=== PATIENT | female | born 1955 | race Caucasian/White ===

== ENCOUNTER → 2022-02-17 11:48 | Outpatient (BNVA) | payer MEDICARE, SELFPAY | PROVIDERS: PCP Internal Medicine; Visit Provider Psychiatry & Neurology Psychiatry | DX: F32.4 Major depressive disorder, single episode, in partial remission (principal); F41.9 Anxiety disorder, unspecified; M79.7 Fibromyalgia; G25.9 Extrapyramidal and movement disorder, unspecified; R32 Unspecified urinary incontinence | CPT/HCPCS: 90833; 99212 ==

== ENCOUNTER → 2022-06-10 16:22 | Outpatient (BNVA) | payer MEDICARE, SELFPAY | PROVIDERS: PCP Internal Medicine; Visit Provider Psychiatry & Neurology Psychiatry | DX: Z13.89 Encounter for screening for other disorder (principal) | CPT/HCPCS: 90833; 99212 ==

== ENCOUNTER → 2022-09-10 14:00 | Outpatient (BNVA) | payer MEDICARE, SELFPAY | PROVIDERS: PCP Internal Medicine; Visit Provider Psychiatry & Neurology Psychiatry | DX: F32.4 Major depressive disorder, single episode, in partial remission (principal); G25.9 Extrapyramidal and movement disorder, unspecified; M79.7 Fibromyalgia | CPT/HCPCS: 90833; 99212 ==

== ENCOUNTER 2022-12-29 14:59 | Outpatient (AMB) | payer MEDICARE, SELFPAY ==
--- NOTE | 2022-12-29 15:05 | A.OFFPSYCH_ITS ---
Intake Intake Visit Reasons: depression Medication List - Last Reconciled 12/29/22 by Umair Vaughan MD albuterol sulfate 90 mcg/actuation 0 mcg inhalation budesonide-formoterol 80-4.5 mcg/actuation (Symbicort) 2 puffs inhalation clonazepam 0.5 mg PO DAILY PRN darifenacin ER 15 mg PO DAILY famotidine (Pepcid) 40 mg PO DAILY hyoscyamine sulfate 0 mg sublingual BID mirabegron ER (Myrbetriq) 25 mg PO DAILY omeprazole 40 mg PO DAILY HPI- Psychiatric Chief Complaint: depression HPI Narrative: Pt has generally been doing well lot of political concerns does have more sylvester nating anxiety at times has 5 grandchildren Does tend to worry about her who appears somewhat a motivational difficulty with the aging.. The patient has retired This generally is going well some uneasiness at times. Patient does have some periods of anxiety rumination no severe OCD symptoms like she has had previously. Movement disorder seems to be generally more in check Some preoccupation at times with past losses and choices that she need to make your relation to her mother and brother Past Psychiatric History: Past history of severe depression and psychiatric hospitalization not for many years Mental Status Exam Mental Status Exam Narrative: No obvious movements on exam noted somewhat sad looking Patient Appearance: Well Grooomed Patient Orientation: Person, Place, Time and Situation Level of Consciousness: Awake Patient Behavior: Appropriate Mood Description: Apprehensive Affect Description: Anxious Patient Cognition Impaired: No Speech Pattern: Clear and Appropriate Memory Description: Intact Hallucinations: None Delusions: Not Present Thought Process: Intact Thought Content: positive for Intact, positive for Preoccupation, negative for Suicidal Ideation or negative for Homicidal Ideation Depressive Symptoms: Increased Anxiety Judgement: Good Judgement and Insight: Some rumination regarding the past and decisions that she needs to make regarding her mother and brother Assessment and Plan Assessment & Plan (1) Major depressive disorder in partial remission: Status: Acute Code(s): F32.4 - Major depressive disorder, single episode, in partial remission (2) Movement disorder: Status: Acute Code(s): G25.9 - Extrapyramidal and movement disorder, unspecified (3) Fibromyalgia: Status: Acute Code(s): M79.7 - Fibromyalgia Plan Occasional use of clonazepam continue current treatment avoid antidepressant use if no significant reason discussed meditation yoga exercise as anxiety relievers. Patient has a history of a movement disorder worsened by fluoxetine Medications: New clonazepam 0.5 mg PO DAILY PRN 90 tabs 0RF anxiety Counseling and coordination of Care Details-Self Mgmt counseling: Issues related to aging some periods of melancholy related to usp and current marital relationship Details: I spent [39] minutes reviewing the record, seeing the patient and documenting in the medical record. Counseling provided to the patient/caregiver as outlined below. Addressed patient/caregiver concerns regarding current medication regime including effective adherence. Addressed patient/caregiver concerns regarding diagnosis and prognosis including accuracy of diagnosis, prognosis over time, impact of diagnosis. Addressed patient/caregiver concerns regarding impact of recent stressors. 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
== END 2022-12-29 15:18 | disposition home or self-care (01) ==
LOC: HO.HOP 14:59
PROVIDERS: PCP Internal Medicine; Visit Provider Psychiatry & Neurology Psychiatry
DX: F32.4 Major depressive disorder, single episode, in partial remission (principal); G25.9 Extrapyramidal and movement disorder, unspecified; M79.7 Fibromyalgia
CPT/HCPCS: 90833; 99213

== ENCOUNTER → 2022-12-29 14:59 | Outpatient (BNVA) | payer MEDICARE, SELFPAY | PROVIDERS: PCP Internal Medicine; Visit Provider Psychiatry & Neurology Psychiatry | DX: F32.4 Major depressive disorder, single episode, in partial remission (principal); G25.9 Extrapyramidal and movement disorder, unspecified; M79.7 Fibromyalgia | CPT/HCPCS: 90833; 99212 ==

== ENCOUNTER 2023-06-18 11:27 | Outpatient (AMB) | payer MEDICARE, SELFPAY ==
--- NOTE | 2023-06-18 11:42 | MHC.OFFVISPS ---
Intake Intake Visit Reasons: depression HPI- Psychiatric Chief Complaint: depression HPI Narrative: Pt had transient dep episode at times has guilty ruminations regarding her brother and mother had other times has worries regarding future and her who is not very active and engage in maintaining his physical health. The patient has not wanted to go back on antidepressants due to movement disorder she developed years ago question related to fluoxetine. She has generally been stable with some periods of anxiety there is a history significant OCD which she does manage rare use of clonazepam. Also has had some rumination regarding issues related to her and her sister Past Psychiatric History: Past history of severe depression and psychiatric hospitalization not for many years Mental Status Exam Mental Status Exam Narrative: No obvious movements on exam noted somewhat sad/apprehensive looking Patient Appearance: Well Grooomed Patient Orientation: Person, Place, Time and Situation Level of Consciousness: Awake Patient Behavior: Appropriate Mood Description: Depressed (mild) and Apprehensive Affect Description: Anxious, Flat and Apprehensive Patient Cognition Impaired: No Speech Pattern: Clear and Appropriate Memory Description: Intact Hallucinations: None Delusions: Not Present Thought Process: Intact Thought Content: positive for Intact, positive for Preoccupation, negative for Suicidal Ideation or negative for Homicidal Ideation Depressive Symptoms: Increased Anxiety Judgement: Good Judgement and Insight: Some rumination regarding aging and her in regarding her sister and whether the patient herself is somehow a good person Assessment and Plan Assessment & Plan (1) Movement disorder: Status: Acute Code(s): G25.9 - Extrapyramidal and movement disorder, unspecified (2) Major depressive disorder in partial remission: Status: Acute Code(s): F32.4 - Major depressive disorder, single episode, in partial remission (3) Fibromyalgia: Status: Acute Code(s): M79.7 - Fibromyalgia (4) History of OCD (obsessive compulsive disorder): Status: Acute Code(s): Z86.59 - Personal history of other mental and behavioral disorders Plan Patient exhibits no active movement disorder. We discussed different techniques to manage anxiety stress worries regarding the future. OCD symptoms generally control. We have discussed use of supplements in the past. Discussed use of meditation yoga and ways to access. Patient does not seem to need to be on antidepressant and is time rare use of Klonopin follow-up 3 4 months Counseling and coordination of Care Pt. Self Management counseling: Breathing, Exercise, Muscle relaxation and Cognitive restructuring Details-Self Mgmt counseling: Issues related to aging interpersonal issues in the family Diagnosis and Prognosis Counseling: Impact of diagnosis on life functions and Adequacy of current interventions Details: I spent [38] minutes reviewing the record, seeing the patient and documenting in the medical record. Counseling provided to the patient/caregiver as outlined below. Addressed patient/caregiver concerns regarding current medication regime including effective adherence. Addressed patient/caregiver concerns regarding diagnosis and prognosis including accuracy of diagnosis, prognosis over time, impact of diagnosis. Addressed patient/caregiver concerns regarding impact of recent stressors. 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
== END 2023-06-18 11:35 | disposition home or self-care (01) ==
LOC: HO.HOP 11:27
PROVIDERS: PCP Internal Medicine; Visit Provider Psychiatry & Neurology Psychiatry
DX: G25.9 Extrapyramidal and movement disorder, unspecified (principal); F32.4 Major depressive disorder, single episode, in partial remission; M79.7 Fibromyalgia; Z86.59 Personal history of other mental and behavioral disorders
CPT/HCPCS: 90833; 99213

== ENCOUNTER → 2023-06-18 11:27 | Outpatient (BNVA) | payer MEDICARE, SELFPAY | PROVIDERS: PCP Internal Medicine; Visit Provider Psychiatry & Neurology Psychiatry | DX: M79.7 Fibromyalgia (principal); G25.9 Extrapyramidal and movement disorder, unspecified; F32.4 Major depressive disorder, single episode, in partial remission; Z86.59 Personal history of other mental and behavioral disorders | CPT/HCPCS: 99212 ==

== ENCOUNTER 2023-09-14 11:34 | Outpatient (AMB) | payer MEDICARE, SELFPAY ==
--- NOTE | 2023-09-14 13:25 | A.OFFPSYCH_ITS ---
Intake Intake Visit Reasons: depression HPI- Psychiatric Chief Complaint: depression HPI Narrative: Patient seen psychiatric follow-up patient's mood has been somewhat anxious she is somewhat over booked spending a lot of time volunteering having little personal time. She has made her peace with the fact that her does not exercise regularly. She difficult time on her late community where she had been by president [employer] in a quite inappropriate manner and was somewhat difficult for her. She does not feel ongoing that she has needed to return to therapy. She does tend to ruminate be somewhat anxious she does state when she had been on antidepressants in the past she did tend to do this less but had a movement disorder question from Prozac question idiopathic unclear. Did see Neurology on 1 occasion has some degree of chronic anxiety history of depression Past Psychiatric History: Past history of severe depression and psychiatric hospitalization not for many years Mental Status Exam Mental Status Exam Narrative: No obvious movements on exam noted somewhat apprehensive looking Patient Appearance: Well Grooomed Patient Orientation: Person, Place, Time and Situation Level of Consciousness: Awake Patient Behavior: Appropriate Mood Description: Flat and Apprehensive Affect Description: Anxious and Flat Patient Cognition Impaired: No Speech Pattern: Clear and Appropriate Memory Description: Intact Hallucinations: None Delusions: Not Present Thought Process: Intact Thought Content: positive for Intact, positive for Preoccupation, negative for Suicidal Ideation or negative for Homicidal Ideation Depressive Symptoms: Increased Anxiety Judgement: Good Judgement and Insight: Some rumination regarding aging issues regarding self-care regarding her relationships with others Assessment and Plan Assessment & Plan (1) History of OCD (obsessive compulsive disorder): Status: Acute Code(s): Z86.59 - Personal history of other mental and behavioral disorders (2) Movement disorder: Status: Acute Code(s): G25.9 - Extrapyramidal and movement disorder, unspecified (3) Fibromyalgia: Status: Acute Code(s): M79.7 - Fibromyalgia Plan Discussed use of low-dose doxepin for insomnia and anxiety if any abnormal movements patient to immediately stop risks benefits alternatives reviewed discussed option of seeing a therapist patient consent for now regarding current treatment follow-up 3 months occasional use of clonazepam Medications: New doxepin 6 mg PO BEDTIME PRN 30 tabs 2RF sleep Refilled clonazepam 0.5 mg PO DAILY PRN 90 tabs 0RF anxiety Counseling and coordination of Care Pt. Self Management counseling: Breathing Details-Self Mgmt counseling: General issues regarding anxiety aging issues with other people self-care Medication management counseling: Effectiveness and Side effects Diagnosis and Prognosis Counseling: Adequacy of current interventions Details: I spent [36] minutes reviewing the record, seeing the patient and documenting in the medical record. Counseling provided to the patient/caregiver as outlined below. Addressed patient/caregiver concerns regarding current medication regime including effective adherence. Addressed patient/caregiver concerns regarding diagnosis and prognosis including accuracy of diagnosis, prognosis over time, impact of diagnosis. Addressed patient/caregiver concerns regarding impact of recent stressors. 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
== END 2023-09-14 12:03 | disposition home or self-care (01) ==
LOC: HO.HOP 11:34
PROVIDERS: PCP Internal Medicine; Visit Provider Psychiatry & Neurology Psychiatry
DX: Z86.59 Personal history of other mental and behavioral disorders (principal); G25.9 Extrapyramidal and movement disorder, unspecified; M79.7 Fibromyalgia
CPT/HCPCS: 90833; 99213

== ENCOUNTER → 2023-09-14 11:34 | Outpatient (BNVA) | payer MEDICARE, SELFPAY | PROVIDERS: PCP Internal Medicine; Visit Provider Psychiatry & Neurology Psychiatry | DX: G25.9 Extrapyramidal and movement disorder, unspecified (principal); M79.7 Fibromyalgia; Z86.59 Personal history of other mental and behavioral disorders | CPT/HCPCS: 99212 ==

== ENCOUNTER 2024-01-28 10:23 | Outpatient (AMB) | payer MEDICARE, SELFPAY ==
--- NOTE | 2024-01-28 10:37 | MHC.OFFVISPS ---
Intake Intake Visit Reasons: Depression Intake Note: Patient seen psychiatric follow-up. Does tend some periods of anxiety OCD remains in control. Some chronic difficulty with how her has been handling the aging process and managing different duties at the house at times. Involuntary movements are rare. Patient times tends to ruminate about the past. No self-harming thoughts. Does not feel need to be in regular psychotherapy at this time was in the past in treatment with Dr. Castellano. HPI- Psychiatric Chief Complaint: Depression HPI Narrative: Pt seen in psych follow up now into the 3 rd yr of group home generally doing well generally doing ok intermittantly arguing in psychology has rebalanced things with her who tends to give pt more responsibility h had major career shift 20 yrs ago and never quite regrouped has good support system has not been on antidep at this time dmitry ness occasionally has had intrusive ocd sx in the past Past Psychiatric History: Past history of severe depression and psychiatric hospitalization not for many years Mental Status Exam Mental Status Exam Narrative: No obvious movements on exam noted somewhat apprehensive looking at time Patient Appearance: Well Grooomed Patient Orientation: Person, Place, Time and Situation Level of Consciousness: Awake Patient Behavior: Appropriate Mood Description: Flat and Apprehensive Affect Description: Anxious and Flat Patient Cognition Impaired: No Speech Pattern: Clear and Appropriate Memory Description: Intact Hallucinations: None Delusions: Not Present Thought Process: Intact Thought Content: positive for Intact, positive for Preoccupation, negative for Suicidal Ideation or negative for Homicidal Ideation Depressive Symptoms: Increased Anxiety Judgement: Good Judgement and Insight: Some ruminations regarding the past and issues with her good judgment and insight Assessment and Plan Assessment & Plan (1) History of OCD (obsessive compulsive disorder): Status: Acute Code(s): Z86.59 - Personal history of other mental and behavioral disorders (2) Generalized anxiety disorder: Status: Acute Code(s): F41.1 - Generalized anxiety disorder (3) Fibromyalgia: Status: Acute Code(s): M79.7 - Fibromyalgia (4) Movement disorder: Status: Acute Code(s): G25.9 - Extrapyramidal and movement disorder, unspecified Plan Patient generally stable occasional use of clonazepam has not needed antidepressant treatment past issue of movement disorder question worsened by fluoxetine has some anxiety in occasional depressive periods has taken inositol in the past for anxiety occasional OCD symptom No abnormal movements noted during exam Medications: Refilled clonazepam 0.5 mg PO DAILY PRN 30 tabs 1RF anxiety Counseling and coordination of Care Details-Self Mgmt counseling: Issues related to managing anxiety Details-Med Mgmt counseling: Issues related to history of negative reaction to medication and possible plans if needed Details: I spent [39] minutes reviewing the record, seeing the patient and documenting in the medical record. Counseling provided to the patient/caregiver as outlined below. Addressed patient/caregiver concerns regarding current medication regime including effective adherence. Addressed patient/caregiver concerns regarding diagnosis and prognosis including accuracy of diagnosis, prognosis over time, impact of diagnosis. Addressed patient/caregiver concerns regarding impact of recent stressors. 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
== END 2024-01-28 11:52 | disposition home or self-care (01) ==
LOC: HO.HOP 10:23
PROVIDERS: PCP Internal Medicine; Visit Provider Psychiatry & Neurology Psychiatry
DX: Z86.59 Personal history of other mental and behavioral disorders (principal); F41.1 Generalized anxiety disorder; M79.7 Fibromyalgia; G25.9 Extrapyramidal and movement disorder, unspecified
CPT/HCPCS: 90833; 99213

== ENCOUNTER → 2024-01-28 10:23 | Outpatient (BNVA) | payer MEDICARE, SELFPAY | PROVIDERS: PCP Internal Medicine; Visit Provider Psychiatry & Neurology Psychiatry | DX: F32.A Depression, unspecified (principal); F41.1 Generalized anxiety disorder; M79.7 Fibromyalgia; G25.9 Extrapyramidal and movement disorder, unspecified; Z71.89 Other specified counseling; Z86.59 Personal history of other mental and behavioral disorders | CPT/HCPCS: 99212 ==

== ENCOUNTER 2024-06-27 14:24 | Outpatient (AMB) | payer MEDICARE, SELFPAY ==
--- NOTE | 2024-06-27 14:41 | A.OFFPSYCH_ITS ---
Intake Intake Visit Reasons: Depression HPI- Psychiatric Chief Complaint: Depression HPI Narrative: Pt seen in psych f/u has noticed change in function recently some difficulty with completing tasks she normally did somewhat depresswed occ panic has left car running has been helping daughters robotics team has had some recent panic attacks lot of recent stressors of friensds has recommended muse headband . 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 Mood apprehensive affect appropriate somewhat constricted content focused on concerns regarding herself for no abnormal movements noted was alert cooperative future oriented good insight and judgment no SI HI no hallucinations or delusional material Assessment and Plan Assessment & Plan (1) Major depressive disorder in partial remission: Status: Acute Code(s): F32.4 - Major depressive disorder, single episode, in partial remission (2) Generalized anxiety disorder: Status: Acute Code(s): F41.1 - Generalized anxiety disorder Plan Patient did not start doxepin avoiding medication generally occasional clonazepam use. Patient has not felt need for ongoing antidepressant treatment has had SSRI question induced movement disorder in the past worried about some degree of short-term memory concentration attention we discussed ways to maintain brain health Medications: Discontinued doxepin Discontinued Reason: Patient no longer taking 6 mg PO BEDTIME PRN 30 tabs 2RF sleep Orders: Orders Homocysteine 06/27/24 R41.3 - Other amnesia Vitamin B12 and Folate 06/27/24 R41.3 - Other amnesia Counseling and coordination of Care Medication management counseling: Effectiveness and Side effects Diagnosis and Prognosis Counseling: Accuracy of diagnosis and Adequacy of current interventions Details-Diagnosis/Prognosis counseling: Check B12 folate homocystine educated regarding risk factors for cognitive impairment and dementia Details: I spent [60] minutes reviewing the record, seeing the patient and documenting in the medical record. Counseling provided to the patient/caregiver as outlined below. Addressed patient/caregiver concerns regarding current medication regime including effective adherence. Addressed patient/caregiver concerns regarding diagnosis and prognosis including accuracy of diagnosis, prognosis over time, impact of diagnosis. Addressed patient/caregiver concerns regarding impact of recent stressors. 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
--- OUTSIDE RECORDS SUMMARY | 2024-06-27 18:05 | XMS_ITS ---
Author Name [facility] Organization Unknown History of Medication Use Medication Directions Dispensed Refills Start Date End Date Status cjhmuf-trcjtzura-vjq nesium sulfates (Suprep Bowel Prep Kit) 17.5-3.13-1.6 GM/177ML Solution solution Follow directions provided by physician's office. 3 active doxycycline (VIBRAMYCIN) 100 MG capsule Take 1 capsule (100 mg total) by mouth 2 (two) times a day. 3 active famotidine 40 mg tablet TAKE 1 TABLET ORALLY ONCE A DAY 02/05/20 23 completed budesonide-formotero l (SYMBICORT) 80-4.5 MCG/ACT inhaler 2 puffs 2 (two) times a day. 3 active lactated ringers infusion 100 mL/hr, Intravenous, Continuous, Starting on Taylor 09/23/23 at 0715, Pre-op 4 active omeprazole 40 mg capsule,delayed release TAKE 1 CAPSULE BY MOUTH EVERY DAY active azelastine 137 mcg (0.1 %) nasal spray aerosol SPRAY 2 SPRAYS INTO EACH NOSTRIL TWICE A DAY 30 active albuterol 108 (90 Base) MCG/ACT inhaler TAKE 2 PUFFS BY MOUTH EVERY 4 TO 6 HOURS NEEDED 3 active darifenacin (ENABLEX) 15 MG 24 hr tablet Take 1 tablet (15 mg total) by mouth daily. 3 active albuterol (PROVENTIL HFA; VENTOLIN HFA) 108 (90 Base) MCG/ACT inhaler Inhale 2 puffs Every 4 (four) to 6 (six) hours as needed. 3 active Mirabegron ER 50 MG TB24 Take by mouth daily. acti ve cholecalciferol (CHOLECALCIFEROL) 1.25 MG (37314 UT) capsule TAKE 2 PUFFS BY MOUTH TWICE A DAY IN THE MORNING AND IN THE EVENING active epinephrine 0.3 mg/0.3 mL injection, auto-injector DIRECTED INTRAMUSCULARLY ONCE active Flowflex COVID-19 Antigen Home Test kit USE DIRECTED 02/05/20 23 completed Lodine 400 mg tablet Take 1 tablet twice a day by oral route. 3 active Yuvafem 10 MCG TABS INSERT ONE TAB VAGINALLY EVERY WEDNESDAY AND Wednesday 3 active Azelastine HCl 137 MCG/SPRAY SOLN spray/apply 2 sprays in each nostril 2 (two) times a day. 3 active Sensorcaine 0.5 % (5 mg/mL) injection solution Take 3 mL by injection route. 3 active Allergies Allergen Reaction Severity Comment Documented Date Source Statu s SULFA (SULFONAMIDE ANTIBIOTICS) [facility] Problems Problem Status Onset Date Problem Type Date of Resolution Source Special screening for malignant neoplasms, colon active EncounterDiagnosisAct CTTHJM H Gastroesophageal reflux disease active 7 ProblemAct [facility] Irritable bowel syndrome without diarrhea active 7 ProblemAct [facility] Arthritis of acromioclavicular joint active 9 ProblemAct [facility]
--- OUTSIDE RECORDS SUMMARY | 2024-06-27 18:05 | XMS_ITS | Clinical Summary ---
Author Organization [facility] Address [address] [place] [address] Care Team Providers Care Movie Theater Manager Name Role Phone Jarred Loaiza MD Primary Care Provider Allergies Active Allergy Reactions Criticality Noted Date Comments Bupivacaine-Epinephrine 06/16/2022 Other reaction(s): TACHYCARDIA Wise Nausea And Vomiting 06/16/2022 Other reaction(s): vomiting Procaine 06/16/2022 Other reaction(s): tachycardia Pentobarbital Other (See Comments) 06/16/2022 Other reaction(s): difficulty waking up Sulfa Antibiotics Hives 05/16/2021 Medications Medication Sig Dispensed Refills Start Date End Date Status clonazePAM (KlonoPIN) 0.125 MG disintegrating tablet Take 1 tablet (0.125 mg total) by mouth 2 (two) times a day as needed for anxiety. 0 Active hyoscyamine (LEVSIN) 0.125 MG tablet Take 1 tablet (0.125 mg total) by mouth every 4 (four) hours as needed for cramping. 0 Active omeprazole (PriLOSEC) 40 MG capsule Take 1 capsule (40 mg total) by mouth daily. 0 Active Mirabegron ER 50 MG TB24 Take by mouth daily. 0 Active conjugated estrogens (PREMARIN) vaginal cream Place vaginally daily. 0 Active meclizine (ANTIVERT) 25 MG tablet Take 1 tablet (25 mg total) by mouth 3 (three) times a day as needed. 30 tablet 0 03/23/2022 Active albuterol 108 (90 Base) MCG/ACT inhaler TAKE 2 PUFFS BY MOUTH EVERY 4 TO 6 HOURS NEEDED 0 06/10/2022 Active Azelastine HCl 137 MCG/SPRAY SOLN spray/apply 2 sprays in each nostril 2 (two) times a day. 0 05/25/2022 Active budesonide-formoterol (SYMBICORT) 80-4.5 MCG/ACT inhaler 2 puffs 2 (two) times a day. 0 05/08/2022 Active Flowflex COVID-19 Ag Home Test KIT USE DIRECTED 0 05/01/2022 Active darifenacin (ENABLEX) 15 MG 24 hr tablet Take 1 tablet (15 mg total) by mouth daily. 0 05/13/2022 Active doxycycline (VIBRAMYCIN) 100 MG capsule Take 1 capsule (100 mg total) by mouth 2 (two) times a day. 0 06/02/2022 Active EPINEPHrine 0.3 MG/0.3ML SOAJ Inject 0.3 mL (0.3 mg total) into the muscle. 0 05/17/2020 Active Yuvafem 10 MCG TABS INSERT ONE TAB VAGINALLY EVERY WEDNESDAY AND WEDNESDAY 0 05/09/2022 Active methylPREDNISolone (MEDROL DOSEPACK) 4 MG tablet TAKE 6 TABLETS ON DAY 1 DIRECTED ON PACKAGE AND DECREASE BY 1 TAB EACH DAY FOR A TOTAL OF 6 DAYS 0 05/07/2022 Active Spacer/Aero-Holding Chambers (OptiChamber Aliya) MISC USE DIRECTED 0 06/11/2022 Active Family History Medical History Relation Name Comments Diabetes Father Diabetes Mother Relation Name Status Comments Father Mother Social History Tobacco Use Types Packs/Day Years Used Date Smoking Tobacco: Former Cigarettes 1 40 Q uit: 2014 Smokeless Tobacco: Never Tobacco Cessation:Counseling Given: Not Answered Alcohol Use Standard Drinks/Week Comments Yes 0 (1 standard drink = 0.6 oz pur e alcohol) weekly Sex and Gender Information Value Date Recorded Sex Assigned at Female 03/23/2022 6:37 PM EST Gender Identity Not on file Sexual Orientation Not on file Job Start Date Occupation Industry Not on file Not on file Not on file Last Filed Vital Signs Vital Sign Reading Time Taken Comments Blood Pressure 130/62 09/23/2023 8:58 AM EDT Pulse 63 09/23/2023 8:58 AM EDT Temperature 36.4 ??C (97.6 ??F) 09/23/2023 8:58 AM ED T Respiratory Rate 18 09/23/2023 9:08 AM EDT Oxygen Saturation 98% 09/23/2023 8:58 AM EDT Inhaled Oxygen Concentration - - Weight 70.3 kg (155 lb) 06/17/2023 12:56 PM EST Height 160 cm (5' 3 ) 06/17/2023 12:56 PM EST Body Mass Index 27.46 06/17/2023 12:56 PM EST Plan of Treatment Health Maintenance Due Date Last Done Comments Hepatitis C Screening 1955 Lung Cancer Screening (Low Dose CT) 1955 Depression Screening 1967 BMI Counseling 1973 Preventative Health Evaluation 1973 DTap / Tdap / Td (1 - Tdap) 1974 Breast Cancer Screening (Mammogram) 2005 Fall Risk Assessment 2020 Osteoporosis Screening (DEXA Scan) 2020 Pneumococcal Vaccine (2 of 2 - PPSV23 or PCV20) 05/17/2021 05/17/2020 COVID-19 Vaccine (3 - season) 2024 03/19/2023, 03/01/2022 Influenza Vaccine (#1) 2024 3, 02/09/2022, 03/02/2021, Additional history exists RSV Adult > 60+ Yrs or (1 - 1-dose 75+ series) 2030 Colon Cancer Screening (Colonoscopy) 09/22/2033 09/23/2023 Shingrix-Zoster Vaccine Completed 02/09/2022, 03/04 Hepatitis B Vaccines Aged Out No long er eligible based on patient's age to complete this topic RSV Ped < 20 months Aged Out No longe r eligible based on patient's age to complete this topic Advance Directives For more information, please contact: [phone] Latest Code Status on File Code Status Date Activated Date Inactivated Comments Full Code 09/23/2023 8:19 AM 09/23/2023 3:16 PM This code status was ascertained in the following way: discussion with patient. Care Teams Movie Theater Manager Relationship Specialty Start Date End Date Jarred Loaiza MD [address] [address] PCP - General Employment Instructional Associate 03/23/22
--- OUTSIDE RECORDS SUMMARY | 2024-06-27 18:05 | XMS_ITS | Data Portability ---
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 The nature of the condition and treatment options were discussed with the patient. Treatment options include rest, avoiding aggravating activities such as overhead lifting, antiinflammatory medication, cortisone injections, or surgical resection. I have reviewed her history and physical exam and x-rays and is my impression that she has AC arthritis. 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 The nature of the condition and treatment options were discussed with the patient. Treatment options include rest, avoiding aggravating activities such as overhead lifting, antiinflammatory medication, cortisone injections, or surgical resection. Not available 09/08/2022 10:40:05 02/04/2023 02/04/2023 I have reviewed her history and physical exam and x-ray and is my impression that she has right shoulder AC arthritis and tendinitis. As an injection and physical therapy worked in the past we will get a try that 1 more time however if her symptoms do not improve then I would have a very low threshold for obtaining an MRI scan and possible surgical intervention The patient's history and physical exam are consistent with right impingement syndrome. The space between the undersurface of the acromion and above the humeral head is the impingement interval. Any condition that narrows this interval causes impingement, including the presence of subacromial bone spurs. There are 3 stages of impingement- stages I, II, and III. Stage I impingement occurs in young patients and is likely a result of overuse. Stage II impingement occurs in slightly older patients and likely results in tendonitis or partial tearing of the rotator cuff. Stage III impingement generally occurs in patients older than 50 and is associated with rotator cuff tearing. Conservative treatment options include avoiding aggravating activities, NSAIDS, home exercises or physical therapy, cortisone injections, or further testing. Operative interventions are reserved for patients who fail conservative treatment. 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 The nature of the condition and treatment options were discussed with the patient. Treatment options include rest, avoiding aggravating activities such as overhead lifting, antiinflammatory medication, cortisone injections, or surgical resection. Not available 02/04/2023 14:25:25 Plan of Treatment Reminders Order Date Submit Date Provider Last Modified By Organization Details Last Modified Time Details Appointments None recorded. Lab None recorded. Referral None recorded. Procedures None recorded. Surgeries None recorded. Imaging None recorded. Medication Orders Kenalog 40 mg/mL suspension for injection 2022 023 [email or web address] [id number], [address] [place], [address], 3 15:09:47 lidocaine (PF) 100 mg/5 mL (2 %) injection syringe 2022 023 [email or web address] [facility] #[id number], [address] [place], [address], 15:09:47 Lodine 400 mg tablet 2022 023 [email or web address] [id number], [address] [facility], [facility] [address], [place], [address], 3 15:09:47 Sensorcaine 0.5 % (5 mg/mL) injection solution 2022 023 [email or web address] Not available 11:47:27 triamcinolo ne acetonide 40 mg/mL suspension for injection 2022 023 [email or web address] Not available 11:47:27 Patient TargetsNo targets recorded. Patient InstructionsNo instructions recorded. Reason for Referral None Reported. Problems Name Problem SNOMED Code Status Onset Date Resolution Date Notes Provider Name and Address Organization Details Recorded Time Arthritis of acromioclavicu lar joint 032116539 Active 2022 Sharad Landaverde MD [address], [place], [address] , [place] [facility] 10:40:22 Problem Notes None recorded. Procedures Surgical History Date Name Laterality Status Provider Name and Address Organization Details Recorded Time 3 SHANNA Subacromial Shoulder Inj w/US completed Sharad Landaverde MD [address], [place], [address], [place] [facility] 02/04/2023 14:24:44 3 Shoulder Joint/Bursa Asp & Inj completed Sharad Landaverde MD [address], [place], [address], [place] [facility] 07/16/2022 11:08:43 Imaging Results None recorded. Procedure Notes None recorded. Medical Equipment None Reported. Allergies Allergen ID Allergen Name Allergen Category Reaction Reaction Severity Criticality Documentation Date Start Date Code Code System Note Provider Name and Address Organization Details Recorded Time 312 Substance with sulfonami de structure and antibacte rial mechanism of action (substanc e) medicatio n Not available Not available Not available 07/16/2022 [id number] SNBRITT Trevino [facility], [place] [facility] 3 10:27:25 Medications Name Sig Start Date Stop Date Status Note LastModified by Organization Details LastModified Time doxycycline hyclate 100 mg capsule TAKE 1 CAPSULE BY MOUTH TWICE A DAY 02/04 completed Not Available Not Available Not Available famotidine 40 mg tablet TAKE 1 TABLET ORALLY ONCE A DAY 02/04 completed Not Available Not Available Not Available clonazepam 0.5 mg tablet TAKE 1 TABLET (0.5MG) BY MOUTH DAILY NEEDED FOR ANXIETY active Not Available Not Available No t Available omeprazole 40 mg capsule,del ayed release TAKE 1 CAPSULE BY MOUTH EVERY DAY active Not Available Not Available No t Available Sensorcaine 0.5 % (5 mg/mL) injection solution Take 3 mL by injection route. 2022 active Not Available Not Available Not Avai lable Kenalog 40 mg/mL suspension for injection Take 1 mL by injection route. 2022 active Not Available Not Available Not Avai lable meclizine 25 mg tablet TAKE 1 TABLET BY MOUTH THREE TIMES A DAY NEEDED 02/04 completed Not Available Not Available Not Available cephalexin 500 mg capsule active Not Available Not Available Not Available hyoscyamine 0.125 mg sublingual tablet 1 TABLET UNDER THE TONGUE AND ALLOW TO DISSOLVE NEEDED SUBLINGUA L 4 TIMES A DAY NEEDED active Not Available Not Available No t Available etodolac 400 mg tablet TAKE 1 TABLET BY MOUTH TWICE A DAY active Not Available Not Available No t Available azelastine 137 mcg (0.1 %) nasal spray SPRAY 2 SPRAYS INTO EACH NOSTRIL TWICE A DAY 30 active Not Available Not Available No t Available epinephrine 0.3 mg/0.3 mL injection, auto-inject or DIRECTED INTRAMUSC ULARLY ONCE active Not Available Not Available No t Available methylpredn isolone 4 mg tablets in a dose pack TAKE 6 TABLETS ON DAY 1 DIRECTED ON PACKAGE AND DECREASE BY 1 TAB EACH DAY FOR A TOTAL OF 6 DAYS 02/04 completed Not Available Not Available Not Available albuterol sulfate HFA 90 mcg/actuati on aerosol inhaler TAKE 2 PUFFS BY MOUTH EVERY 4 TO 6 HOURS NEEDED active Not Available Not Available No t Available nitrofurant oin monohydrate /macrocryst als 100 mg capsule TAKE 1 CAPSULE BY MOUTH EVERY 12 HOURS WITH FOOD FOR 7 DAYS 02/04 completed Not Available Not Available Not Available darifenacin ER 7.5 mg tablet,exte nded release 24 hr TAKE 1 TABLET BY MOUTH EVERY DAY 02/04 completed Not Available Not Available Not Available darifenacin ER 15 mg tablet,exte nded release 24 hr TAKE 1 TABLET BY MOUTH EVERY DAY active Not Available Not Available No t Available Symbicort 80 mcg-4.5 mcg/actuati on HFA aerosol inhaler TAKE 2 PUFFS BY MOUTH TWICE A DAY IN THE MORNING AND IN THE EVENING active Not Available Not Available No t Available lidocaine (PF) 100 mg/5 mL (2 %) injection syringe Take 2 mL by injection route. 2022 active Not Available Not Available Not Elvis Pisano [facility] spacer USE DIRECTED active Not Available Not Available No t Available Myrbetriq 50 mg tablet,exte nded release TAKE 1 TABLET BY MOUTH EVERY DAY active Not Available Not Available No t Available Yuvafem 10 mcg vaginal tablet INSERT ONE TAB VAGINALLY EVERY WEDNESDAY AND WEDNESDAY active Not Available Not Available No t Available Flowflex COVID-19 Antigen Home Test kit USE DIRECTED 02/04 completed Not Available Not Available Not Available Vitals Date Recorded Body height Body mass index (BMI) Body weight Provider Name and Address Organization Details Last Updated DateTime 07/16/2022 160.02 cm 28.2 kg/m2 19832.19 g Leena Trevino [facility], [facility] 07/16/2022 10:29:13 Date Recorded Body height Body mass index (BMI) Body weight Provider Name and Address Organization Details Last Updated DateTime 09/08/2022 160.02 cm 28.2 kg/m2 85675.19 g Leon Maldonado [facility] 09/08/2022 10:29:08 Date Recorded Body height Provider Name an d Address Organization Details Last Updated DateTime 02/04/2023 160.02 cm Leena Trevino [facility] 02/04/2023 14:04:30 Social History Question Answer Notes LastModified by Organizat ion Details LastModified Time Tobacco Smoking Status Former Smoker Leena Trevino null, [facility] 07/16/2022 10:29:45 What Is Your Level Of Alcohol Consumption? Occasional [email or web address] Information not available 07/16/2022 Do You Use Any Illicit Or Recreational Drugs? No [email or web address] Information not available 07/16/2022 Sex: Unknown Functional Status None recorded. Mental Status None recorded. Family History Relationship Description Onset Age of this Age Resolved Age Notes LastModified by Organization Details LastModified Time Mother Diabetes mellitus [email or web address] Not available 2022 10:30:22 Father Diabetes mellitus [email or web address] Not available 2022 10:30:25 Medical History Condition Response COPD Y Gynecological HistoryNo gynecological history recorded. Obstetrics History GPAL:G 0 P 0 0 0 0 Past Encounters Encounter ID Performer Location Encounter Start Date Encounter Closed Date Diagnosis/Indication Diagnosis SNOMED-CT Code Diagnosis ICD10 Code Diagnosis Note [id number] Sharad Landaverde MD [place] [id number] 9 07/16/2022 10:19:43 07/16/2022 11:19:22 Arthritis of acromioclavicular joint 128662589 M13.819 [id number] Sharad Landaverde MD [place] [id number] 09/08/2022 10:20:46 09/08/2022 10:39:27 Arthritis of acromioclavicular joint 339099061 M13.819 [id number] Sharad Landaverde MD [place] [id number] 02/04/2023 13:52:18 02/04/2023 14:33:25 Tendinitis of right shoulder 3280744076 563973 M75.91 Health Concerns Section Related Observation LastModified by Organization Detai ls LastModified Time None Recorded Concern Status LastModified by Organization Details LastModified Time None Recorded Advance Directives Directive None Recorded Payers Encounter Date Sequence Insurance Name Policy Number Policy Robertson Covered Member ID Robertson Member ID Guarantor Name 07/16/2022 1 [employer] (MEDICARE REPLACEMENT PPO) [id number] Flory Dean [id number] Flory Dean 09/08/2022 1 [employer] (MEDICARE REPLACEMENT PPO) [id number] Flory Dean [id number] Flory Dean 02/04/2023 1 [employer] (MEDICARE REPLACEMENT PPO) [id number] Flory Dean [id number] Flory Dean Notes Date Note Type Note Provider Name and Address Organization Details Recorded Time 07/16/2022 text/html Flory returns fo r follow-up of her right shoulder. Her MRI scan did show inflammation of the rotator cuff and AC arthritis but no rotator cuff tear Sharad Landaverde MD [address], [place], [address], [place] [facility] 07/16/2022 11:47:05 09/08/2022 text/html flory returns fo r follow-up of her right shoulder the anterior injection really helped she reports that her pain has almost completely gone away and she has been playing pickle ball without discomfort Sharad Landaverde MD [address], [place], [address], [place] [facility] 09/08/2022 10:40:40 02/04/2023 text/html flory returns fo r follow-up of her right shoulder. I saw her last back in August and she had some tendinitis and ac arthritis and we did an injection and she did some therapy and she actually felt a lot better. Recently her pain is come back she complains of superior and lateral pain Sharad Landaverde MD [address], [place], [address], [place] [facility] 02/04/2023 14:25:36 OBGyn Episode No OBEpisode recorded.
--- OUTSIDE RECORDS SUMMARY | 2024-06-27 18:05 | XMS_ITS | Clinical Summary ---
Author Organization [facility] Address [address] [place] [address] Care Team Providers Care Barge Master Name Role Phone Jarred Pan MD Primary Care Provider [phone] Surgical History Surgery Date Site/Laterality Comments HIP SURGERY PROCEDURE:HIP SURGERY COLONOSCOPY PROCEDURE:COLONOSCOPY UPPER GASTROINTESTINAL ENDOSCOPY PROCEDURE:UPPER GASTROINTESTINAL ENDOSCOPY URETHRAL SLING PROCEDURE:URETHRAL SLING COLONOSCOPY 09/23/2023 N/A PROCEDURE:COLONOSCOPY;COMMENT :Procedure: COLONOSCOPY; Surgeon: Loc Roa MD; Location: [facility]; Service: Gastroenterology; Laterality: N/A; Medical History Medical History Date Comments COPD (chronic obstructive pu lmonary disease) ([facility]/H[facility]) DX:COPD (chronic obstructive pulmonary disease) ([facility]) Asthma DX:Asthma Overactive bladder DX:Overactive bladder GERD (gastroesophageal reflux disease) DX:GERD (gastroesophageal reflux disease) Family History Medical History Relation Name Comments Diabetes Father Diabetes Mother Relation Name Status Comments Father Mother Social History Tobacco Use Types Packs/Day Years Used Date Smoking Tobacco: Former Cigarettes Q uit: 05/03/2014 Smokeless Tobacco: Never Alcohol Use Standard Drinks/Week Comments Yes 0 (1 standard drink = 0.6 oz pur e alcohol) Comments Unknown Sex and Gender Information Value Date Recorded Sex Assigned at Not on file Legal Sex Female 2:20 AM EST Gender Identity Not on file Sexual Orientation Not on file Obstetrics History Last Filed Vital Signs Vital Sign Reading Time Taken Comments Blood Pressure - - Pulse - - Temperature - - Respiratory Rate - - Oxygen Saturation - - Inhaled Oxygen Concentration - - Weight 72.1 kg (159 lb) 06/16/2022 10:16 AM EST Height 160 cm (5' 3 ) 06/16/2022 10:16 AM EST Body Mass Index 28.17 06/16/2022 10:16 AM EST Plan of Treatment Health Maintenance Due Date Last Done Comments Breast Cancer Screening 1955 DTaP,Tdap,and Td Vaccines (1 - Tdap) 1974 Pneumococcal Vaccine: 50+ Ye ars (1 of 1 - PCV) 2005 Zoster Vaccines (1 of 2) 2005 Depression Screening 04/11/2022 Falls Risk Assessment 04/11/2022 Hepatitis C Screening 04/11/2022 Lung Cancer Screening (Low D ose CT) 04/11/2022 Osteoporosis Screening (Bone Density Screening) 04/11/2022 Social Influencers of Health Screening 04/11/2022 COVID-19 Vaccine (1 - 2023-2 5 season) 2024 Influenza Vaccine (#1) 2024 RSV Immunization Patients 60 + Years Old (1 - 1-dose 75+ series) 2030 Colorectal Cancer Screening: Colonoscopy 09/22/2033 09/23/2023 HIB Vaccines Aged Out No longer eligi ble based on patient's age to complete this topic HPV Vaccines Aged Out No longer eligi ble based on patient's age to complete this topic Hepatitis A Vaccines Aged Out No long er eligible based on patient's age to complete this topic Hepatitis B Vaccines Aged Out No long er eligible based on patient's age to complete this topic IPV Vaccines Aged Out No longer eligi ble based on patient's age to complete this topic MMR Vaccines Aged Out No longer eligi ble based on patient's age to complete this topic Meningococcal ACWY Vaccine Aged Out N o longer eligible based on patient's age to complete this topic Meningococcal B Vacine Aged Out No lo nger eligible based on patient's age to complete this topic RSV Immunization Patients Un pablo 20 months Aged Out No longer eligible b ased on patient's age to complete this topic Varicella Vaccines Aged Out No longer eligible based on patient's age to complete this topic Care Teams Barge Master Relationship Specialty Start Date End Date Jarred Pan MD [address] [place] [id number] PCP - General Curator Herbarium 05/16/21
--- OUTSIDE RECORDS SUMMARY | 2024-06-27 18:06 | XMS_ITS | Clinical Summary ---
Author Organization [facility] Address [address] [place] [address] Care Team Providers Care Gage Maker Name Role Phone Jarred Loaiza MD Primary Care Provider [phone] Allergies Active Allergy Reactions Criticality Noted Date Comments Other Unknown/Patient and Family Unable to Define Medium 02/04/2023 Novocaine Pentobarbital Other (See Comments) 02/04/2023 Prolong effect Sulfa Antibiotics Hives Medium 02/04/2023 Medications Medication Sig Dispensed Refills Start Date End Date Status OMEprazole (PriLOSEC) 40 MG capsule Take 1 capsule (40 mg total) by mouth every morning before breakfast. Active qflddv-azgngrakh-ew gnesium sulfates (Suprep Bowel Prep Kit) 17.5-3.13-1.6 GM/177ML Solution solutionIndications :Colon cancer screening Follow directions provided by physician's office. 354 mL 02/04/2023 Active albuterol (PROVENTIL HFA; VENTOLIN HFA) 108 (90 Base) MCG/ACT inhaler Inhale 2 puffs Every 4 (four) to 6 (six) hours as needed. 12/11/2022 Active cholecalciferol (CHOLECALCIFEROL) 1.25 MG (71319 UT) capsule TAKE 2 PUFFS BY MOUTH TWICE A DAY IN THE MORNING AND IN THE EVENING Active cephalexin (KEFLEX) 500 MG capsuleIndications: Cellulitis of right thumb Take 1 capsule (500 mg total) by mouth 4 (four) times a day. 20 capsule 02/13/2023 Active Active Problems Problem Noted Date Diagnosed Date Irritable bowel syndrome without diarrhea 2022 Gastroesophageal reflux disease 02/06/2023 Resolved Problems Problem Noted Date Diagnosed Date Resolved Date Colon cancer screening 02/04/202307/13 Social History Tobacco Use Types Packs/Day Years Used Date Smoking Tobacco: Former Cigarettes 1 40 Smokeless Tobacco: Never Tobacco Cessation:Counseling Given: Not Answered Sex and Gender Information Value Date Recorded Sex Assigned at Not on file Gender Identity Not on file Sexual Orientation Not on file Last Filed Vital Signs Vital Sign Reading Time Taken Comments Blood Pressure 127/67 02/13/2023 5:44 PM EDT Pulse 61 02/13/2023 5:44 PM EDT Temperature 36.8 ??C (98.3 ??F) 02/13/2023 5:44 PM ED T Respiratory Rate 16 02/13/2023 5:44 PM EDT Oxygen Saturation 99% 02/13/2023 5:44 PM EDT Inhaled Oxygen Concentration - - Weight 68 kg (150 lb) 02/13/2023 5:44 PM EDT Height 160 cm (5' 3 ) 02/13/2023 5:44 PM EDT Body Mass Index 26.57 02/13/2023 5:44 PM EDT Plan of Treatment Health Maintenance Due Date Last Done Comments Hepatitis C Virus Screening 1955 DTaP/Tdap/Td Vaccines (1 - Tdap) 1974 Mammogram 1995 Colonoscopy 2000 Pneumococcal Vaccines 50+ (1 of 1 - PCV) 2005 Zoster (Shingles) Vaccine (1 of 2) 2005 DXA Bone Density (Females,Ages 65 and older) 2020 Influenza Vaccine 12/02/2023 02/09/2022, , 03/04/2020, Additional history exists COVID-19 Vaccine (2023- season) 2024 03/01/2022, 10/01/2021, 03/02/2021, Additional history exists RSV Vaccine 60 years and older and Patients (1 - 1-dose 75+ series) 2030 Hepatitis B Vaccines Aged Out No long er eligible based on patient's age to complete this topic Care Teams Gage Maker Relationship Specialty Start Date End Date Jarred Loaiza MD [address] [place] [address] [address] [place] [address] PCP - General Internal Medicine 06/03/22
--- OUTSIDE RECORDS SUMMARY | 2024-06-27 18:06 | XMS_ITS | Encounter Summary ---
Author Organization [facility] Address [address] [place] [address] Care Team Providers Care Kennel Helper Name Role Phone Jarred Loaiza MD Primary Care Provider [phone] Encounter Details Date Type Department Care Team (Late st Contact Info) Description 10/15/2022 Scanned Document [facility], [address] [place] [id number] Jarred Loaiza MD [address] [place] [address] Social History Tobacco Use Types Packs/Day Years Used Date Smoking Tobacco: Never Assessed Sex and Gender Information Value Date Recorded Sex Assigned at Not on file Gender Identity Not on file Sexual Orientation Not on file COVID-19 Exposure Response Date Recorded In the last 10 days, have yo u been in contact with someone who was confirmed or suspected to have Coronavirus/COVID-19? No / Unsure 09/17/2022 1:42 PM EDT documented as of this encounter Plan of Treatment Not on file documented as of this encounter Visit Diagnoses Not on filedocumented in this encounter Care Teams Kennel Helper Relationship Specialty Start Date End Date Jarred Loaiza MD [address] [place], [place] [id number] PCP - General Internal Medicine 06/03/22 documented as of this encounter
== END 2024-06-27 15:23 | disposition home or self-care (01) ==
LOC: HO.HOP 14:24
PROVIDERS: PCP Internal Medicine; Visit Provider Psychiatry & Neurology Psychiatry
DX: F32.4 Major depressive disorder, single episode, in partial remission (principal); F41.1 Generalized anxiety disorder
CPT/HCPCS: 99214

== ENCOUNTER 2024-06-27 14:24 | Outpatient (REF) | payer MEDICARE, SELFPAY ==
[2024-06-27 18:08] LABS: Folate 9.9 ng/mL (> or = 4.0); Vitamin B12 497 pg/mL (200-900)
--- OUTSIDE RECORDS SUMMARY | 2024-06-27 19:18 | XMS_ITS | Clinical Summary ---
Author Organization [facility] Address [address] [place] [address] Care Team Providers Care Litigation Services Manager Name Role Phone Jarred Loaiza MD Primary Care Provider [phone] Allergies Active Allergy Reactions Criticality Noted Date [...] Advance Directives For more information, please contact: [phone] Latest Code Status on File Code Status Date Activated Date Inactivated Comments Full Code 09/23/2023 8:19 AM 09/23/2023 3:16 PM This code status was ascertained in the following way: discussion with patient. Care Teams Litigation Services Manager Relationship Specialty Start Date End Date Jarred Loaiza MD [address] [address] PCP - General Electorate Officer 03/23/22
--- OUTSIDE RECORDS SUMMARY | 2024-06-27 19:18 | XMS_ITS | Clinical Summary ---
Author Organization [facility] Address [address] [place] [address] Care Team Providers Care Soldering Machine Operator Helper Name Role Phone Jarred Loaiza MD Primary Care Provider [phone] Allergies Active Allergy Reactions Criticality Noted Date Comments Other Unknown/Patient and Family Unable to Define Medium 02/04/2023 Novocaine Pentobarbital Other (See Comments) 02/04/2023 Prolong effect Sulfa Antibiotics Hives Medium 02/04/2023 Medications Medication Sig Dispensed Refills Start Date End Date Status OMEprazole (PriLOSEC) 40 MG capsule Take 1 capsule (40 mg total) by mouth every morning before breakfast. Active zwvwrb-wvptdlwqm-or gnesium sulfates (Suprep Bowel Prep Kit) 17.5-3.13-1.6 GM/177ML Solution solutionIndications :Colon cancer screening Follow directions provided by physician's office. 354 mL 02/04/2023 Active albuterol (PROVENTIL HFA; VENTOLIN HFA) 108 (90 Base) MCG/ACT inhaler Inhale 2 puffs Every 4 (four) to 6 (six) hours as needed. 12/11/2022 Active cholecalciferol (CHOLECALCIFEROL) 1.25 MG (03063 UT) capsule TAKE 2 PUFFS BY MOUTH [...] age to complete this topic Care Teams Soldering Machine Operator Helper Relationship Specialty Start Date End Date Jarred Loaiza MD [address] [place] [address] [address] [place] [address] PCP - General Internal Medicine 06/03/22
--- OUTSIDE RECORDS SUMMARY | 2024-06-27 19:18 | XMS_ITS | Clinical Summary ---
Author Organization [facility] Address [address] [place] [address] Care Team Providers Care Treasury Management Sales Consultant Name Role Phone Jarred Pan MD Primary Care Provider [phone] Surgical History Surgery Date Site/Laterality Comments HIP SURGERY PROCEDURE:HIP SURGERY COLONOSCOPY PROCEDURE:COLONOSCOPY UPPER GASTROINTESTINAL ENDOSCOPY PROCEDURE:UPPER GASTROINTESTINAL ENDOSCOPY URETHRAL SLING PROCEDURE:URETHRAL SLING COLONOSCOPY 09/23/2023 N/A PROCEDURE:COLONOSCOPY;COMMENT :Procedure: COLONOSCOPY; Surgeon: Loc Roa MD; Location: [facility]; Service: Gastroenterology; Laterality: N/A; Medical History Medical History Date Comments COPD (chronic obstructive pu lmonary disease) ([facility]/HCC) DX:COPD (chronic obstructive pulmonary disease) ([facility]) Asthma DX:Asthma Overactive bladder DX:Overactive bladder GERD [...] age to complete this topic Care Teams Treasury Management Sales Consultant Relationship Specialty Start Date End Date Jarred Pan MD [address] [place] [address] PCP - General Weight Loss Sales Consultant 05/16/21
--- OUTSIDE RECORDS SUMMARY | 2024-06-27 19:18 | XMS_ITS | Encounter Summary ---
Author Organization [facility] Address [address] [place] [address] Care Team Providers Care Analytics Leader Name Role Phone Jarred Loaiza MD Primary Care Provider [phone] Encounter Details Date Type Department Care Team (Late st Contact Info) Description 10/15/2022 Scanned Document [facility], [address] [place] [phone] Jarred Loaiza MD [address] [place] [address] Social History Tobacco Use Types Packs/Day Years [...] on filedocumented in this encounter Care Teams Analytics Leader Relationship Specialty Start Date End Date Jarred Loaiza MD [address] [place], [place] [id number] PCP - General Internal Medicine 06/03/22 documented as of this encounter
[2024-06-28 17:34] LABS: Homocysteine 13.6 umol/L (<10.4)
== END 2024-06-27 14:25 | disposition home or self-care (01) ==
LOC: HO.LAB 14:24
PROVIDERS: PCP Internal Medicine; Visit Provider Psychiatry & Neurology Psychiatry
DX: R41.3 Other amnesia (principal)
CPT/HCPCS: 36415; 82607; 82746; 83090

== ENCOUNTER 2024-09-19 11:32 | Outpatient (AMB) | payer MEDICARE, SELFPAY ==
--- NOTE | 2024-09-19 12:38 | MHC.OFFVISPS ---
Intake Intake Visit Reasons: depression HPI- Psychiatric Chief Complaint: depression HPI Narrative: Pt has generally been doing ok some periods of anxiety. Mood has been stable not overly depressed discussing ways to manage stress.Phq9 peggy not elevated. Some level of chronic anxiety Past Psychiatric History: Past history of severe depression and psychiatric hospitalization not for many years Mental Status Exam Mental Status Exam Narrative: Mental Status Exam Narrative: Appearance: Casually dressed Behavior: Cooperative appropriate psychomotor: Within normal limits Speech: Normal volume and prosody Thought proccess logical and goal-directed Thought content: Future oriented no self-harming thoughts some anxiety regarding cognition st memory Mood: some anxiety Affect: Appropriate to mood full affect SI:denies HI:denies VH/AH:none Delusions: None Insight/judgment: Good insight and judgment Memory/cog: Intact no obvious deficit word finding Assessment and Plan Assessment & Plan (1) History of OCD (obsessive compulsive disorder): Status: Acute Code(s): Z86.59 - Personal history of other mental and behavioral disorders (2) Generalized anxiety disorder: Status: Acute Code(s): F41.1 - Generalized anxiety disorder Plan extensive discussion re citocholine muse headband multiple strategies to manage anxiety citocholine for mild cognitive issues discussed option to see neuropych Counseling and coordination of Care Details: I spent [] minutes reviewing the record, seeing the patient and documenting in the medical record. Counseling provided to the patient/caregiver as outlined below. Addressed patient/caregiver concerns regarding current medication regime including effective adherence. Addressed patient/caregiver concerns regarding diagnosis and prognosis including accuracy of diagnosis, prognosis over time, impact of diagnosis. Addressed patient/caregiver concerns regarding impact of recent stressors. 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
--- OUTSIDE RECORDS SUMMARY | 2024-09-19 12:46 | XMS_ITS | Clinical Summary ---
Author Organization [facility] Address [address] [place] [address] Care Team Providers Care Cradle Placer Name Role Phone Jarred Loaiza MD Primary Care Provider [phone] Allergies Active Allergy Reactions Criticality Noted Date [...] Advance Directives For more information, please contact: [phone] Latest Code Status on File Code Status Date Activated Date Inactivated Comments Full Code 09/23/2023 8:19 AM 09/23/2023 3:16 PM This code status was ascertained in the following way: discussion with patient. Care Teams Cradle Placer Relationship Specialty Start Date End Date Jarred Loaiza MD [address] [address] PCP - General Wallpaper Inspector And Shipper 03/23/22
--- OUTSIDE RECORDS SUMMARY | 2024-09-19 12:46 | XMS_ITS | Clinical Summary ---
Author Organization [facility] Address [address] [place] [address] Care Team Providers Care Store Mgr Name Role Phone Jarred Pan MD Primary Care Provider [phone] Surgical History Surgery Date Site/Laterality Comments HIP SURGERY PROCEDURE:HIP SURGERY COLONOSCOPY PROCEDURE:COLONOSCOPY UPPER GASTROINTESTINAL ENDOSCOPY PROCEDURE:UPPER GASTROINTESTINAL ENDOSCOPY URETHRAL SLING PROCEDURE:URETHRAL SLING COLONOSCOPY 09/23/2023 N/A PROCEDURE:COLONOSCOPY;COMMENT :Procedure: COLONOSCOPY; Surgeon: Loc Roa MD; Location: [facility]; Service: Gastroenterology; Laterality: N/A; Medical History Medical History Date Comments COPD (chronic obstructive pu lmonary disease) ([facility] V24, [facility] V28) DX:COPD (chronic o bstructive pulmonary disease) ([facility]) Asthma DX:Asthma Overactive bladder DX:Overactive [...] 06/16/2022 10:16 AM EST Plan of Treatment Upcoming Encounters Date Type Department Care Team (Late st Contact Info) Description 03/12/2025 11:00 AM EST Office Visit Pulmonolgy - [facility] [address] [place] [phone] Jesika Carnes MD [address] [place] [address] Health Maintenance Due Date Last Done Comments [...] Influencers of Health Screening 04/11/2022 COVID-19 Vaccine ( - 2023-2 5 season) 2024 Influenza Vaccine (Season Ended) 2025 RSV Immunization Adult Patie nts (1 - 1-dose 75+ series) 2030 Colorectal [...] age to complete this topic Meningococcal B Vaccine Aged Out No l onger eligible based on patient's age to complete this topic RSV Immunization Patients Un pablo 20 months Aged Out No longer eligible b ased on patient's age to complete this topic Varicella Vaccines Aged Out No longer eligible based on patient's age to complete this topic Care Teams Store Mgr Relationship Specialty Start Date End Date Jarred Pan MD [address] [place] [address] PCP - General Manager Sound 05/16/21
--- OUTSIDE RECORDS SUMMARY | 2024-09-19 12:46 | XMS_ITS | Encounter Summary ---
Author Organization [facility] Address [address] [place] [address] Care Team Providers Care Rental Sales Representative Name Role Phone Jarred Loaiza MD Primary Care Provider [phone] Encounter Details Date Type Department Care Team (Late st Contact Info) Description 10/15/2022 Scanned Document [facility], [address] [place] [phone] Jarred Loaiza MD [address] [place] [address] Social History Tobacco Use Types Packs/Day Years Used Date Smoking Tobacco: Never Assessed Comments Unknown Sex and Gender Information Value Date Recorded Sex Assigned at Not on file Legal Sex Female 6:21 PM EST Gender Identity Not on file [...] on filedocumented in this encounter Care Teams Rental Sales Representative Relationship Specialty Start Date End Date Jarred Loaiza MD [address] [place] [address] PCP - General Internal Medicine 06/03/22 documented as of this encounter
--- OUTSIDE RECORDS SUMMARY | 2024-09-19 12:47 | XMS_ITS | Clinical Summary ---
Author Organization [facility] Address [address] [place] [address] Care Team Providers Care Plater Production Name Role Phone Jarred Loaiza MD Primary Care Provider [phone] Allergies Active Allergy Reactions Criticality Noted Date Comments Other Unknown/Patient and Family Unable to Define Medium 02/04/2023 Novocaine Pentobarbital Other (See Comments) 02/04/2023 Prolong effect Sulfa Antibiotics Hives Medium 02/04/2023 Medications OMEprazole (PriLOSEC) 40 MG capsule Take 1 capsule (40 mg total) by mouth every morning before breakfast. Active sodium-potassiu m-magnesium sulfates (Suprep Bowel Prep Kit) 17.5-3.13-1.6 GM/177ML Solution solutionIndicat ions:Colon cancer screening Follow directions provided by physician's office. 354 mL 3 Active albuterol (PROVENTIL HFA; VENTOLIN HFA) 108 (90 Base) MCG/ACT inhaler Inhale 2 puffs Every 4 (four) to 6 (six) hours as needed. 3 Active cholecalciferol (CHOLECALCIFERO L) 1.25 MG (14898 UT) capsule TAKE 2 PUFFS BY MOUTH TWICE A DAY IN THE MORNING AND IN THE EVENING Active cephalexin (KEFLEX) 500 MG capsuleIndicati ons:Cellulitis of right thumb Take 1 capsule (500 mg total) by mouth 4 (four) times a day. 20 capsule 3 Active Active Problems Problem Noted Date Diagnosed Date Irritable bowel syndrome without diarrhea 2022 Gastroesophageal reflux disease 02/06/2023 Resolved Problems Problem Noted Date Diagnosed Date Resolved Date Colon cancer screening 02/04/202307/13 Social History Tobacco Use Types Packs/Day Years Used Date Smoking Tobacco: Former Cigarettes 1 40 Smokeless Tobacco: Never Tobacco Cessation:Counseling Given: Not Answered Comments Unknown Sex and Gender Information Value Date Recorded Sex Assigned at Not on file Legal Sex Female 6:21 PM EST Gender Identity Not on file Sexual Orientation Not on file Last Filed Vital Signs Vital Sign Reading Time Taken Comments Blood Pressure 127/67 02/13/2023 5:44 PM EDT Pulse 61 02/13/2023 5:44 PM EDT Temperature 36.8 ??C (98.3 ??F) 02/13/2023 5:44 PM E DT Respiratory Rate 16 02/13/2023 5:44 PM EDT [...] Bone Density (Females,Ages 65 and older) 2020 COVID-19 Vaccine ( season) 2024 03/01/2022, 10/01/2021, 03/02/2021, Additional history exists Influenza Vaccine 12/01/2024 02/09/2022, , 03/04/2020, Additional history exists RSV Vaccine 60 years and older and Patients (1 - 1-dose 75+ series) 2030 Hepatitis B Vaccines Aged Out No long er eligible based on patient's age to complete this topic Insurance [facility] MEDICARE [facility] MEDICARE [facility] MEDICARE Care Teams Plater Production Relationship Specialty Start Date End Date Jarred Loaiza MD [address] [facility] [address] [place] [address] PCP - General Internal Medicine 06/03/22
--- OUTSIDE RECORDS SUMMARY | 2024-09-19 12:47 | XMS_ITS | Data Portability ---
Author Organization [place] [facility] Tonja Bailey [facility] Address [address] [place] [address] Assessment Encounter Date Assessment Date Assessment LastModified [...] mg/mL suspension for injection 2022 023 [email or web address] [facility][id number], [address] [place], [address], 3 15:09:47 lidocaine (PF) 100 mg/5 mL (2 %) injection syringe 2022 023 [email or web address] [facility] #[id number], [address] [place], [address], 15:09:47 Lodine 400 mg tablet 2022 023 [email or web address] [id number], [address] [facility], [place], [address], 3 15:09:47 Sensorcaine 0.5 % (5 mg/mL) [...] Recorded Time Arthritis of acromioclavicu lar joint 277159541 Active 2022 Sharad Landaverde MD [address], [place], [address] [place] [facility] [place] 10:40:22 Problem Notes None recorded. Procedures Surgical History Date Name Laterality Status Provider Name and Address Organization Details Recorded Time 3 SHANNA Subacromial Shoulder Inj w/US completed Sharad Landaverde MD [address], [place], [address], [place] [facility] 02/04/2023 14:24:44 3 Shoulder Joint/Bursa Asp & Inj completed Sharad Landaverde MD [address], [place], [address], [place] [facility] 07/16/2022 11:08:43 Imaging Results None recorded. [...] Not available Not available Not available 07/16/2022 [id number] SNBRITT Trevino [facility], [place] [facility] [place] 3 10:27:25 Medications Name Sig Start [...] Not Available Not Available Not Elvis Pisano [facility] spacer USE DIRECTED active Not Available Not [...] Updated DateTime 07/16/2022 160.02 cm 28.2 kg/m2 68285.[address] [facility] [place] 07/16/2022 10:29:13 Date Recorded Body height Body mass index (BMI) Body weight Provider Name and Address Organization Details Last Updated DateTime 09/08/2022 160.02 cm 28.2 kg/m2 53645.19 g Leon Maldonado [place] [facility] 09/08/2022 10:29:08 Date Recorded Body height Provider Name an d Address Organization Details Last Updated DateTime 02/04/2023 160.[address] [facility] [place] 02/04/2023 14:04:30 Social History None recorded. Functional Status Question Answer Note LastModified by Organizat ion Details LastModified Time Do you use any illicit or recreational drugs? No [email or web address] Information not available 07/16/2022 What is your level of alcohol consumption? Occasional [email or web address] Information not available 07/16/2022 Mental Status None recorded. Family History Relationship Description Onset Age of this Age Resolved Age Notes LastModified by Organization Details LastModified Time Mother Diabetes mellitus [email or web address] Not available 2022 10:30:22 Father Diabetes mellitus Not available 2022 10:30:25 Medical History Condition Response COPD Y Gynecological HistoryNo gynecological history recorded. Obstetrics History GPAL:G 0 P 0 0 0 0 Past Encounters Encounter ID Performer Location Encounter Start Date Encounter Closed Date Diagnosis/Indication Diagnosis SNOMED-CT Code Diagnosis ICD10 Code Diagnosis Note [id number] Sharad Landaverde MD [place] [address] 07/16/2022 10:19:43 07/16/2022 11:19:22 Arthritis of acromioclavicular joint 362530626 M13.819 [id number] Sharad Landaverde MD [place] [address] 9 09/08/2022 10:20:46 09/08/2022 10:39:27 Arthritis of acromioclavicular joint 043273772 M13.819 [id number] Sharad Landaverde MD [place] [address] 9 02/04/2023 13:52:18 02/04/2023 14:33:25 Tendinitis of right shoulder 9140465680 052791 M75.91 Health Concerns Section Related Observation LastModified by Organization Detai ls LastModified Time None Recorded Concern Status LastModified by Organization Details LastModified Time None Recorded Advance Directives Directive None Recorded Payers Encounter Date Sequence Insurance Name Policy Number Policy Robertson Covered Member ID Robertson Member ID Guarantor Name 07/16/2022 1 [employer] (MEDICARE REPLACEMENT/ ADVANTAGE - PPO) [id number] Flory Mckinleyoff [id number] Flory Ostapoff 09/08/2022 1 [employer] (MEDICARE REPLACEMENT/ ADVANTAGE - PPO) [id number] Flory Mckinleyoff [id number] Flory Ostapoff 02/04/2023 1 [employer] (MEDICARE REPLACEMENT/ ADVANTAGE - PPO) [id number] Flory Dean [id number] Flory Huangtashabessie Notes Date Note Type Note Provider Name and Address Organization Details Recorded Time 07/16/2022 text/html Flory returns fo r follow-up of her right shoulder. Her MRI scan did show inflammation of the rotator cuff and AC arthritis but no rotator cuff tear MD [address], [place], [address], [place] [facility] [place] 07/16/2022 11:47:05 09/08/2022 text/html flory returns fo r follow-up of her right shoulder the anterior injection really helped she reports that her pain has almost completely gone away and she has been playing pickle ball without discomfort MD [address], [place], [address], [facility] [place] 09/08/2022 10:40:40 02/04/2023 text/html flory returns fo r follow-up of her right shoulder. I saw her last back in August and she had some tendinitis and ac arthritis and we did an injection and she did some therapy and she actually felt a lot better. Recently her pain is come back she complains of superior and lateral pain MD [address], [place], [address], [facility] [place] 02/04/2023 14:25:36 OBGyn Episode No OBEpisode recorded.
== END 2024-09-19 12:06 | disposition home or self-care (01) ==
LOC: HO.HOP 11:32
PROVIDERS: PCP Internal Medicine; Visit Provider Psychiatry & Neurology Psychiatry
DX: Z86.59 Personal history of other mental and behavioral disorders (principal); F41.1 Generalized anxiety disorder
CPT/HCPCS: 99214

== ENCOUNTER → 2024-09-19 11:32 | Outpatient (BNVA) | payer MEDICARE, SELFPAY | PROVIDERS: PCP Internal Medicine; Visit Provider Psychiatry & Neurology Psychiatry | DX: F41.1 Generalized anxiety disorder (principal); Z86.59 Personal history of other mental and behavioral disorders | CPT/HCPCS: 99212 ==

== ENCOUNTER 2025-01-09 10:58 | Outpatient (AMB) | payer MEDICARE, SELFPAY ==
--- NOTE | 2025-01-09 11:24 | A.OFFPSYCH_ITS ---
Intake Intake Visit Reasons: depression HPI- Psychiatric Chief Complaint: depression HPI Narrative: Patient seen psychiatric follow-up . Patient's she PHQ generally unremarkable mi anxiety symptoms. Patient chronically worried about her who does not wish to have a medical workup for impairment. Patient worries about her own cognition recent evaluation unremarkable. Patient does want to make her does take care of himself that better understanding what may be going on Past Psychiatric History: Past history of severe depression and psychiatric hospitalization not for many years Mental Status Exam Mental Status Exam Narrative: Mental Status Exam Narrative: Appearance: Casually dressed Behavior: Cooperative appropriate psychomotor: Within normal limits Speech: Normal volume and prosody Thought proccess logical and goal-directed Thought content: Future oriented no self-harming thoughts some anxiety regarding cognition st memory particularly regarding her Mood: some anxiety Affect: Appropriate to mood full affect SI:denies HI:denies VH/AH:none Delusions: None Insight/judgment: Good insight and judgment Memory/cog: Intact no obvious deficit word finding Assessment and Plan Assessment & Plan (1) History of OCD (obsessive compulsive disorder): Status: Acute Code(s): Z86.59 - Personal history of other mental and behavioral disorders (2) Generalized anxiety disorder: Status: Acute Code(s): F41.1 - Generalized anxiety disorder (3) Movement disorder: Status: Acute Code(s): G25.9 - Extrapyramidal and movement disorder, unspecified Plan no obsessional suicidal preoccupations does think about the past at times has been able to thought block ocd concerns prison going well 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 Counseling provided to the patient/caregiver as outlined below. Addressed patient/caregiver concerns regarding current medication regime including effective adherence. Addressed patient/caregiver concerns regarding diagnosis and prognosis including accuracy of diagnosis, prognosis over time, impact of diagnosis. Addressed patient/caregiver concerns regarding impact of recent stressors. [facility] Medical History (Updated 06/27/24 @ 15:04 by Umair Vaughan MD) Movement disorder Fibromyalgia Urinary bladder incontinence Social History: fam hx als brother schiz sister hoarding pt retired teacher father hx alcoholism Substance History: none Trauma History: childhood f alcoholism Coding Level of Care Code Est Pt Level 4 (61327) Diagnoses History of OCD (obsessive compulsive disorder) Z86.59 Generalized anxiety disorder F41.1 Movement disorder G25.9
--- OUTSIDE RECORDS SUMMARY | 2025-01-09 13:17 | XMS_ITS | Encounter Summary ---
Author Organization [facility] Address [address] [place] [id number] Care Team Providers Care Ventilation Worker Name Role Phone Jarred Loaiza MD Primary Care Provider [phone] Encounter Details Date Type Department Care Team (Late st Contact Info) Description 10/15/2022 Scanned Document [facility], [address] [place] [id number] Jarred Loaiza MD [address] [place] [address] Social History Tobacco Use Types Packs/Day Years [...] on filedocumented in this encounter Care Teams Ventilation Worker Relationship Specialty Start Date End Date Jarred Loaiza MD [address] [place] [address] PCP - General Internal Medicine 06/03/22 documented as of this encounter
--- OUTSIDE RECORDS SUMMARY | 2025-01-09 13:17 | XMS_ITS | Clinical Summary ---
Author Organization [facility] Address [address] [place] [address] Care Team Providers Care Forest Products Gatherer Name Role Phone Jarred Loaiza MD Primary Care Provider [phone] Allergies Active Allergy Reactions Criticality Noted Date [...] 3 Active cholecalciferol (CHOLECALCIFERO L) 1.25 MG (99392 UT) capsule TAKE 2 PUFFS BY MOUTH [...] 61 02/13/2023 5:44 PM EDT Temperature 36.8 C (98.3 F) 02/13/2023 5:44 PM EDT Respiratory Rate 16 02/13/2023 5:44 PM EDT Oxygen Saturation 99% 02/13/2023 5:44 PM EDT Inhaled Oxygen Concentration - - Weight 68 kg (150 lb) 02/13/2023 5:44 PM EDT Height 160 cm (5' 3 ) 02/13/2023 5:44 PM EDT Body Mass Index 26.57 02/13/2023 5:44 PM EDT Plan of Treatment Health Maintenance Due Date Last Done Comments Advance Care Planning 1955 Hepatitis C Virus Screening 1955 DTaP/Tdap/Td Vaccines (1 - Tdap) 1974 Mammogram 1995 Colonoscopy 2000 Pneumococcal Vaccines 50+ (1 of 1 - PCV) 2005 Zoster (Shingles) Vaccine (1 of 2) 2005 DXA Bone Density (Females,Ages 65 and older) 2020 Influenza Vaccine 12/01/2024 02/09/2022, , 03/04/2020, Additional history exists COVID-19 Vaccine ( season) 2025 03/01/2022, 10/01/2021, 03/02/2021, Additional history exists RSV Vaccine 60 years and older and Patients (1 - 1-dose 75+ series) 2030 Hepatitis B Vaccines Aged Out No long er eligible based on patient's age to complete this topic Insurance [facility] MEDICARE [facility] MEDICARE [facility] MEDICARE Care Teams Forest Products Gatherer Relationship Specialty Start Date End Date Jarred Loaiza MD [address] [place] [address] [address] [place] [address] PCP - General Internal Medicine 06/03/22
--- OUTSIDE RECORDS SUMMARY | 2025-01-09 13:17 | XMS_ITS ---
Author Name [facility] Organization Unknown History of Medication Use Medication Directions Dispensed Refills Start Date End Date Status lactated ringers infusion 100 mL/hr, Intravenous, Continuous, Starting on Taylor 09/23/23 at 0715, Pre-op 4 active Lodine 400 mg tablet Take 1 tablet twice a day by oral route. 3 active gjibmj-zmvhpbwns-nbp nesium sulfates (Suprep Bowel Prep Kit) 17.5-3.13-1.6 GM/177ML Solution solution Follow directions provided by physician's office. 3 active albuterol (PROVENTIL HFA; VENTOLIN HFA) 108 (90 Base) MCG/ACT inhaler Inhale 2 puffs Every 4 (four) to 6 (six) hours as needed. 3 active Sensorcaine 0.5 % (5 mg/mL) injection solution Take 3 mL by injection route. 3 active albuterol 108 (90 Base) MCG/ACT inhaler TAKE 2 PUFFS BY MOUTH EVERY 4 TO 6 HOURS NEEDED 3 active doxycycline (VIBRAMYCIN) 100 MG capsule Take 1 capsule (100 mg total) by mouth 2 (two) times a day. 3 active Azelastine HCl 137 MCG/SPRAY SOLN spray/apply 2 sprays in each nostril 2 (two) times a day. 3 active darifenacin (ENABLEX) 15 MG 24 hr tablet Take 1 tablet (15 mg total) by mouth daily. 3 active Yuvafem 10 MCG TABS INSERT ONE TAB VAGINALLY EVERY WEDNESDAY AND Wednesday 3 active budesonide-formotero l (SYMBICORT) 80-4.5 MCG/ACT inhaler 2 puffs 2 (two) times a day. 3 active famotidine 40 mg tablet TAKE 1 TABLET ORALLY ONCE A DAY 02/05/20 23 completed Flowflex COVID-19 Antigen Home Test kit USE DIRECTED 02/05/20 23 completed azelastine 137 mcg (0.1 %) nasal spray aerosol SPRAY 2 SPRAYS INTO EACH NOSTRIL TWICE A DAY 30 active epinephrine 0.3 mg/0.3 mL injection, auto-injector DIRECTED INTRAMUSCULARLY ONCE active omeprazole 40 mg capsule,delayed release TAKE 1 CAPSULE BY MOUTH EVERY DAY active cholecalciferol (CHOLECALCIFEROL) 1.25 MG (53388 UT) capsule TAKE 2 PUFFS BY MOUTH TWICE A DAY IN THE MORNING AND IN THE EVENING active Mirabegron ER 50 MG TB24 Take by mouth daily. acti ve Allergies Allergen Reaction Severity Comment Documented Date Source Status SULFA ANTIBIOTICS HIVES 05/16/2021 [facility] act bianca DAVIS NAUSEA AND VOMITING Other reaction(s): vomiting [facility] OTHER UNKNOWN/[facility] AND FAMILY UNABLE TO DEFINE Novocaine [facility] PENTOBARBITAL OTHER (SEE COMMENTS)OTH ER (SEE COMMENTS) Prolong effect [facility] PROCAINE Other reaction(s): tachycardia [facility] SULFA (SULFONAMIDE ANTIBIOTICS) ENS_AONECT Problems Problem Status Onset Date Problem Type Date of Resolution Source Special screening for malignant neoplasms, colon active EncounterDiagnosisAct [facility] Gastroesophageal reflux disease active 0 7 ProblemAct [facility] Irritable bowel syndrome without diarrhea active 0 7 ProblemAct [facility] Arthritis of acromioclavicular joint active 0 9 ProblemAct ENS_AONECT Encounters Encounter Type Encounter Reason Primary Diagnosis Location Date Ambulatory Encounter for screening for malignant neoplasm of colon Encounter for screening for malignant neoplasm of colon [facility] 09/23/2023 Ambulatory [facility] 07/27/2023 Ambulatory [facility] 07/20/2023 Ambulatory Cellulitis of right finger Cellulitis of right finger [facility] 02/13/2023 Ambulatory Consult Consult [facility] 02/04/2023 Ambulatory [facility] 02/04/2023 Ambulatory [facility] 09/17/2022 Ambulatory [facility] 09/08/2022 Ambulatory [facility] 09/07/2022 Ambulatory Dysphonia [facility] 08/31/2022 Ambulatory [facility] 08/24/2022 Ambulatory Dysphonia [facility] 07/29/2022 Ambulatory Dysphonia [facility] 07/22/2022 Ambulatory [facility] 07/15/2022 Ambulatory Dysphonia [facility] 06/29/2022 Care Team Organization Name Specialty Phone Email Start Date End Da te [facility] 10/13/2024 [facility]T 10/13/2024 [facility] 10/02/2024 10/04/2024 [facility] 09/23/2023 [facility] 07/20/2023 [facility] [employer] 07/06/2023 10/03/2023 [facility] Primary Care 06/10/2023 11/14/2024 [facility] 12/2023 [facility] 03/05/2023 [facility] 12/11/2022 10/13/2024 [facility] 12/11/2022 09/30/2024 [facility] Primary Care 06/29/2022 07/20/19 [facility] 06/09/2022 07/08/19
--- OUTSIDE RECORDS SUMMARY | 2025-01-09 13:17 | XMS_ITS | Clinical Summary ---
Author Organization [facility] Address [address] [place] [address] Care Team Providers Care Track Service Person Name Role Phone Jarred Loaiza MD Primary Care Provider [phone] Allergies Active Allergy Reactions Criticality Noted Date [...] 63 09/23/2023 8:58 AM EDT Temperature 36.4 C (97.6 F) 09/23/2023 8:58 AM EDT Respiratory Rate 18 09/23/2023 9:08 AM EDT [...] 05/17/2021 05/17/2020 COVID-19 Vaccine (3 - season) 2025 03/19/2023, 03/01/2022 Influenza Vaccine (#1) 2025 3, 02/09/2022, 03/02/2021, Additional history exists RSV [...] Advance Directives For more information, please contact: [phone] Latest Code Status on File Code Status Date Activated Date Inactivated Comments Full Code 09/23/2023 8:19 AM 09/23/2023 3:16 PM This code status was ascertained in the following way: discussion with patient. Care Teams Track Service Person Relationship Specialty Start Date End Date Jarred Loaiza MD [address] [facility] [address] [place] [address] PCP - General Tax Manager Public 03/23/22
--- OUTSIDE RECORDS SUMMARY | 2025-01-09 13:17 | XMS_ITS | Clinical Summary ---
Author Organization [address] [place] [address] Address [address] [place] [address] Phone Care Team Providers Care Electromedical Service Engineer Name Role Phone Jarred Pan MD Primary Care Provider [phone] Surgical History Surgery Date Site/Laterality Comments HIP SURGERY PROCEDURE:HIP SURGERY COLONOSCOPY PROCEDURE:COLONOSCOPY UPPER GASTROINTESTINAL ENDOSCOPY PROCEDURE:UPPER GASTROINTESTINAL ENDOSCOPY URETHRAL SLING PROCEDURE:URETHRAL SLING COLONOSCOPY 09/23/2023 N/A PROCEDURE:COLONOSCOPY;COMMENT :Procedure: COLONOSCOPY; Surgeon: Loc Roa MD; Location: [facility]; Service: Gastroenterology; Laterality: N/A; Medical History Medical History Date Comments COPD (chronic obstructive pu lmonary disease) ([facility] V24, [facility] V28) DX:COPD (chronic o bstructive pulmonary disease) ([facility]) Asthma DX:Asthma Overactive bladder DX:Overactive bladder GERD [...] 03/12/2025 11:00 AM EST Office Visit Pulmonolgy [facility] [address] [facility] [address] [place] [address] Jesika Carnes MD [facility] [place] [address] Health Maintenance Due Date Last Done Comments Breast Cancer Screening 1955 DTaP,Tdap,and Td Vaccines (1 - Tdap) 1974 Pneumococcal Vaccine: 50+ Ye ars (1 of 1 - PCV) 2005 Zoster Vaccines (1 of 2) 2005 Falls Risk Assessment 04/11/2022 Hepatitis C Screening 04/11/2022 Lung Cancer Screening (Low D ose CT) 04/11/2022 Medicare Annual Wellness Visit 04/11/2022 Osteoporosis Screening (Bone Density Screening) 04/11/2022 Social Influencers of Health Screening 04/11/2022 Depression Screening 05/03/2024 COVID-19 Vaccine (1 - 2023-2 5 season) 2025 Influenza Vaccine (#1) 2025 RSV Immunization Adult Patie nts (1 [...] patient's age to complete this topic Insurance [employer] MEDICARE ADVANTAGE Care Teams Electromedical Service Engineer Relationship Specialty Start Date End Date Jarred Pan MD [address] [place] [id number] PCP - General Paint Technician 05/16/21
== END 2025-01-09 11:45 | disposition home or self-care (01) ==
LOC: HO.HOP 10:58
PROVIDERS: PCP Internal Medicine; Visit Provider Psychiatry & Neurology Psychiatry
DX: Z86.59 Personal history of other mental and behavioral disorders (principal); F41.1 Generalized anxiety disorder; G25.9 Extrapyramidal and movement disorder, unspecified
CPT/HCPCS: 99214

== ENCOUNTER → 2025-01-09 10:58 | Outpatient (BNVA) | payer MEDICARE, SELFPAY | PROVIDERS: PCP Internal Medicine; Visit Provider Psychiatry & Neurology Psychiatry | DX: F41.1 Generalized anxiety disorder (principal); G25.9 Extrapyramidal and movement disorder, unspecified; Z86.59 Personal history of other mental and behavioral disorders | CPT/HCPCS: 99212 ==

== ENCOUNTER 2025-04-03 10:23 | Outpatient (AMB) | payer MEDICARE, SELFPAY ==
--- OUTSIDE RECORDS SUMMARY | 2025-04-02 09:30 | XMS_ITS | Encounter Summary ---
Author Organization [facility] Address [address] [place] [address] Care Team Providers Care Neurosurgery Research Director Name Role Phone Jarred Pan MD Primary Care Provider [phone] Reason for Referral * Therapy (Routine) - Pending Review Specialty Diagnoses / Procedures Referred By Contac t Referred To Contact Pulmonology Diagnoses Chronic obstructive pulmonary disease with emphysema, unspecified emphysema type (CMS/HCC V24, CMS/HCC V28) Procedures Pulmonary function testing: Flow Volume Loop, Helium Dilution Lung Volumes, Carbon Monoxide Diffusing Capacity, Spirometry with Bronchodilator, Vital Capacity Test, Spirometry, Nitrogen Wash Out Jesika Carnes MD [address] [place] [phone] Phone: tel: fax: Pulmon[address] [address] Phone: tel: fax: Referral ID Status Reason Start Date Expiration Date V isits Requested Visits Authorized [id number] Pending Review 04/02/2025 04/02/2026 1 1 Reason for Visit * Reason Comments COPD Follow up for COPD. Pt has been having more SOB than normal Encounter Details Date Type Department Care Team ([facility] st Contact Info) Description 04/02/2025 9:30 AM EST Office Visit Pulmon[address] [address] Jesika Carnes MD [address] [place] [address] Chronic obstructive pulmonary disease with emphysema, unspecified emphysema type (CMS/HCC V24, CMS/HCC V28) (Primary Dx); Pulmonary nodule; Gastroesophageal reflux disease without esophagitis Social History Tobacco Use Types Packs/Day Years Used Date Smoking Tobacco: Former Cigarettes 1 Q uit: 05/03/2014 Smokeless Tobacco: Never Tobacco Cessation:Counseling Given: Not Answered Alcohol Use Standard Drinks/Week Comments Yes 0 (1 standard drink = 0.6 oz pur e alcohol) Comments Unknown Sex and Gender Information Value Date Recorded Sex Assigned at Not on file Legal Sex Female 2:20 AM EST Gender Identity Not on file Sexual Orientation Not on file documented as of this encounter Last Filed Vital Signs Vital Sign Reading Time Taken Comments Blood Pressure 125/45 04/02/2025 9:30 AM EST Pulse 73 04/02/2025 9:30 AM EST Temperature 36.1 C (97 F) 04/02/2025 9:30 AM EST Respiratory Rate 20 04/02/2025 9:30 AM EST Oxygen Saturation 98% 04/02/2025 9:30 AM EST Inhaled Oxygen Concentration - - Weight 70.8 kg (156 lb) 04/02/2025 9:30 AM EST Height 160 cm (5' 3 ) 04/02/2025 9:30 AM EST Body Mass Index 27.63 04/02/2025 9:30 AM EST documented in this encounter Progress Notes * Harriet Person MA - 04/02/2025 9:30 AM ESTAddended by: HARRIET PERSON on: 04/03/2025 10:11 AM Modules accepted: Orders * Jesika Carnes MD - 04/02/2025 9:30 AM EST ADULT PULMONARY Followup CHIEF COMPLAINT : COPD (Follow up for COPD. Pt has been having more SOB than normal) HISTORY OF PRESENT ILLNESS: History of Present Illness Kiara Dean is a 69 y.o. old, patient is here for follow-up visit, since her last visit to my office no acute issues or complaint, breathing has been stable, denies any fever or chills, chest pains, cough or colored phlegm production. Underwent a CAT scan of the chest at [facility] in January, for low-dose surveillance CAT scan of the chest which is done once a year however unfortunately the report is not available for our review according to the patient CAT scan of the chest was reviewed with primary care provider Dr. Pan and everything was okay. REVIEW OF SYSTEMS: Review of Systems Constitutional: Negative for fever. HENT: Negative for ear pain and sore throat. Cardiovascular: Negative for chest pain, claudication, leg swelling, orthopnea, paroxysmal nocturnal dyspnea and syncope. Respiratory: Positive for shortness of breath and sputum production. Negative for hemoptysis and wheezing. Skin: Negative for rash. Musculoskeletal: Negative for neck pain. Gastrointestinal: Negative for abdominal pain and vomiting. Neurological: Negative for headaches. All other systems reviewed and are negative. ALLERGIES: Current Allergies[1] ACTIVE MEDICATIONS: Medications Taking[2] PROVIDER ATTESTS THAT THE MEDICATION LIST WAS OBTAINED, REVIEWED AND UPDATED. PAST MEDICAL HISTORY: There are no active problems to display for this patient. Surgical History[3] Surgical History[4] FAMILY HISTORY: Family History[5] SOCIAL HISTORY Social History Socioeconomic History Marital status: Spouse name: Not on file Number of children: Not on file Years of education: Not on file Highest education level: Not on file Occupational History Not on file Tobacco Use Smoking status: Former Current packs/day: 0.00 Average packs/day: 1.0 packs/day Types: Cigarettes Quit date: 05/03/2014 Years since quittin.9 Smokeless tobacco: Never Substance and Sexual Activity Alcohol use: Yes Drug use: Never Sexual activity: Not on file Other Topics Concern Not on file Social History Narrative Merged History Encounter IMMUNIZATION: There is no immunization history on file for this patient. PHYSICAL EXAM: Visit Vitals BP (!) 125/45 Pulse 73 Temp 36.1 ??C (97 ??F) (Temporal) Resp 20 Ht 1.6 m (63 ) Wt 70.8 kg (156 lb) SpO2 98% BMI 27.63 kg/m?? Smoking Status Former BSA 1.74 m?? Physical Exam Vitals and nursing note reviewed. Constitutional: Appearance: Normal appearance. HENT: Head: Normocephalic and atraumatic. Right Ear: Tympanic membrane, ear canal and external ear normal. Left Ear: Tympanic membrane, ear canal and external ear normal. Nose: Nose normal. Mouth/Throat: Mouth: Mucous membranes are moist. Pharynx: Oropharynx is clear. Eyes: Extraocular Movements: Extraocular movements intact. Conjunctiva/sclera: Conjunctivae normal. Pupils: Pupils are equal, round, and reactive to light. Cardiovascular: Rate and Rhythm: Normal rate and regular rhythm. Pulses: Normal pulses. Heart sounds: Normal heart sounds. Pulmonary: Effort: Pulmonary effort is normal. Breath sounds: Normal breath sounds. Abdominal: General: Abdomen is flat. Bowel sounds are normal. Palpations: Abdomen is soft. Musculoskeletal: General: Normal range of motion. Cervical back: Normal range of motion and neck supple. Skin: General: Skin is warm. Capillary Refill: Capillary refill takes more than 3 seconds. Neurological: General: No focal deficit present. Mental Status: She is alert and oriented to person, place, and time. Mental status is at baseline. Psychiatric: Mood and Affect: Mood normal. Behavior: Behavior normal. Thought Content: Thought content normal. Judgment: Judgment normal. Diagnostic: CURRENTS ICD-10 PULMONARY DIAGNOSIS 1. Chronic obstructive pulmonary disease with emphysema, unspecified emphysema type (CMS/HCC V24, CMS/HCC V28) Pulmonary function testing: Flow Volume Loop, Helium Dilution Lung Volumes, Carbon Monoxide Diffusing Capacity, Spirometry with Bronchodilator, Vital Capacity Test, Spirometry, Nitrogen Wash Out Inhaler Spacer 2. Pulmonary nodule 3. Gastroesophageal reflux disease without esophagitis ASSESSMENT/PLAN: This is a pleasant 69-year-old female quit smoking in 2014 after smoking a pack of cigarette a day for 35 years, retired schoolteacher, history of anxiety and depression, urinary incontinence, overactive bladder, fibromyalgia, left hip labrum tear repair in 2007, pulmonary nodule, COPD, GERD, overall appears to be doing okay from pulmonary point of view. 1. COPD, moderate degree, patient has been advised to continue with Symbicort 80/4.5, 2 puffs twicea day via AeroChamber along with albuterol HFA 2 puffs every 6 hours as needed for shortness of breath. 2. Pulmonary nodule, low-dose surveillance CAT scan of the chest was done in January of this year at [facility], I do not have the copy of the results, I will obtain the results, howeveraccording to the patient she did discuss the results with the primary care provider and everything was okay. 3. GERD, denies any heartburn, continue with omeprazole 40 mg daily on an empty stomach. 4. Disposition, follow-up in 4 months. Problem List Items Addressed This Visit None -Follow up with Jarred Pan MD for the other co-morbilities. RETURN TO THE NEXT VISIT: Based on physical exam, symptomatology, tests requested and baseline pulmonary evaluation/disease, I instructed the patient to come back to see me in for reevaluation after the test has been done or earlier if the patient needed. Thanks Jarred Pan MD for allowing me to have the opportunity to assist in the care of this patient. This chart was generated by the [employer] system and [employer] speech recognition software and may contain inherent errors or omissions not intended by the user. Grammatical errors, random word insertions, deletions, pronoun errors and incomplete sentences are occasional consequences of this technologydue to software limitations. Not all errors are caught or corrected. If there are questions or concerns about the content of this note or information contained within the body of this dictation they should be addressed directly with the author for clarification. Electronically Signed By:Jesika Carnes MD I have obtained verbal consent from Kiara Dean prior to the recording. I have advised Kiara Dean that she may refuse the recording and require the recording to be turned off at any time during this encounter. Answers submitted by the patient for this visit: Shortness of Breath Questionnaire (Submitted on 04/01/2025) Chief Complaint: Shortness of breath Chronicity: recurrent Onset: more than 1 year ago Frequency: every several days Progression since onset: waxing and waning Episode duration: 2 Hours leg pain: No rhinorrhea: Yes coryza: No swollen glands: No Aggravating factors: nothing [1] Allergies Allergen Reactions Bupivacaine-Epinephrine Palpitations Other reaction(s): TACHYCARDIA Pentobarbital Other and Unknown Other Reaction(s): difficulty waking Other reaction(s): difficulty waking up Procaine Palpitations Other reaction(s): tachycardia Sheep/Ovine/Wise Containing Products Nausea And Vomiting Other reaction(s): vomiting Sulfa (Sulfonamide Antibiotics) Hives Sulfadiazine Hives [2] No outpatient medications have been marked as taking for the 04/02/25 encounter (Office Visit) with Jesika Carnes MD. [3] Past Surgical History: Procedure Laterality Date COLONOSCOPY PROCEDURE:COLONOSCOPY COLONOSCOPY N/A 09/23/2023 PROCEDURE:COLONOSCOPY;COMMENT:Procedure: COLONOSCOPY; Surgeon: Loc Roa MD; Location: [facility]; Service: Gastroenterology; Laterality: N/A; HIP SURGERY PROCEDURE:HIP SURGERY UPPER GASTROINTESTINAL ENDOSCOPY PROCEDURE:UPPER GASTROINTESTINAL ENDOSCOPY URETHRAL SLING PROCEDURE:URETHRAL SLING [4] Past Surgical History: Procedure Laterality Date COLONOSCOPY PROCEDURE:COLONOSCOPY COLONOSCOPY N/A 09/23/2023 PROCEDURE:COLONOSCOPY;COMMENT:Procedure: COLONOSCOPY; Surgeon: Loc Roa MD; Location: [facility]; Service: Gastroenterology; Laterality: N/A; HIP SURGERY PROCEDURE:HIP SURGERY UPPER GASTROINTESTINAL ENDOSCOPY PROCEDURE:UPPER GASTROINTESTINAL ENDOSCOPY URETHRAL SLING PROCEDURE:URETHRAL SLING [5] Family History Problem Relation Name Age of Onset Diabetes Mother Diabetes Father documented in this encounter Plan of Treatment Upcoming Encounters Date Type Department Care Team (Late st Contact Info) Description 05/17/2025 1:15 PM EST Clinical Support Pulmonology - [address] [address] 05/17/2025 2:00 PM EST Office Visit Pulmonology [address] [address] Jesika Carnes MD [address] [place] [phone] Scheduled Orders Name Type Priority Associated Diagnoses Orde r Schedule Pulmonary function testing: Flow Volume Loop, Helium Dilution Lung Volumes, Carbon Monoxide Diffusing Capacity, Spirometry with Bronchodilator, Vital Capacity Test, Spirometry, Nitrogen Wash Out PFT Routine Chronic Obstructive Pulmonary Disease With Emphysema, Unspecified Emphysema Type (Cms/Hcc V24, Cms/Hcc V28) Expected: 04/02/2025, Expires: 04/02/2026 documented as of this encounter Visit Diagnoses Diagnosis Chronic obstructive pulmonary disease with emphysema, unspecified emphysema type ([facility] V24, [facility] V28)- Primary Pulmonary nodule Other diseases of lung, not elsewhere classified Gastroesophageal reflux disease without esophagitis Esophageal reflux documented in this encounter Orders General Supply Count Last Ordered Date First Or dered Date INHALER SPACER 1 04/03/2025 documented in this encounter Care Teams Neurosurgery Research Director Relationship Specialty Start Date End Date Jarred Pan MD [address] [place] [address] PCP - General Apple Thinner 05/16/21 documented as of this encounter
--- OUTSIDE RECORDS SUMMARY | 2025-04-03 11:52 | XMS_ITS | Data Portability ---
Author Organization [place] [facility] Tonja [facility] Address [address] [place] [address] Assessment Encounter Date Assessment Date Assessment LastModified [...] see her back in another 6 weeks Not available 07/16/2022 11:06:43 09/08/2022 09/08/2022 I [...] mg/mL suspension for injection 2022 023 [email or web address] [facility]acy #[id number], [address] [place], [address], 15:09:47 lidocaine (PF) 100 mg/5 mL (2 %) injection syringe 2022 023 [email or web address] [facility] #[id number], [address] [place], [address], 10/05/202 3 15:09:47 Lodine 400 mg tablet 2022 023 [email or web address] [facility]/Pharmacy #[id number], [address] [facility], [place], [address], 3 15:09:47 Sensorcaine 0.5 % (5 mg/mL) injection solution 2022 023 [email or web address] Not available 3 11:47:27 triamcinolo ne acetonide 40 mg/mL suspension for injection 2022 023 [email or web address] Not available 11:47:27 Patient TargetsNo targets recorded. Patient InstructionsNo instructions recorded. Reason for Referral None Reported. Problems Name Problem SNOMED Code Status Onset Date Resolution Date Notes Provider Name and Address Organization Details Recorded Time Arthritis of acromioclavicu lar joint 545377517 Active 2022 Sharad Landaverde MD [address], [place], [address] , [place] [facility] 3 10:40:22 Problem Notes None recorded. Procedures Surgical History Date Name Laterality Status Provider Name and Address Organization Details Recorded Time 3 SHANNA Subacromial Shoulder Inj w/US completed Sharad Landaverde MD [address], [place], [address], [place] [facility] 02/04/2023 14:24:44 3 Shoulder Joint/Bursa Asp & Inj completed Sharad Landaverde MD [address], [place], [address], [place] [facility] 07/16/2022 11:08:43 Imaging Results None recorded. Procedure Notes None recorded. Medical Equipment None Reported. Allergies Allergen ID Allergen Name Allergen Category Reaction Reaction Severity Criticality Documentation Date Start Date Code Code System Note Provider Name and Address Organization Details Recorded Time 050812 bupivacai ne / epinephri ne medicatio n Not available Not available Not available 01/23/20252022 98271 6 RxNorm Other react ion(s ): TACHY CARDI A Not Available [facility] 5 01:30:57 648541 pentobarb ital medicatio n Not available Not available Not available 01/23/20252022 8004 RxNorm React ion: Other (See Comme nts), abril ity: Unkno wn;Ot her react ion(s ): diffi culty wakin g up Not Available [facility] 5 01:30:58 690404 procaine medicatio n Not available Not available Not available 01/23/20252022 8701 RxNorm Other react ion(s ): tachy cardi a Not Available [facility] 5 01:30:58 312 Substance with sulfonami de structure and antibacte rial mechanism of action (substanc e) medicatio n Not available Not available Not available 07/16/2022 20910 8003 SNOMED Leena Uriel [facility], [place] [facility], 3 10:27:25 Medications Name Sig Start Date [...] No t Available methylpredn isolone 4 mg tablet TAKE 6 TABLETS ON DAY 1 DIRECTED ON PACKAGE AND DECREASE BY 1 TAB EACH DAY FOR A TOTAL OF 6 DAYS 2022 active Not Available Not Available Not Avai lable omeprazole 40 mg capsule,del ayed release Take 1 capsule (40 mg total) by mouth daily. active Not Available Not Available No t [...] Not Available Not Available Not Available hyoscyamine sulfate 0.125 mg tablet Take 1 tablet (0.125 mg total) by mouth every 4 (four) hours as needed for cramping. active Not Available Not Available No t Available conjugated estrogens 0.625 mg/gram vaginal cream Place vaginally daily. active Not Available Not Available No t Available hyoscyamine 0.125 mg sublingual tablet 1 [...] Not Available Not Available No t Available clonazepam 0.125 mg disintegrat ing tablet Take 1 tablet (0.125 mg total) by mouth 2 (two) times a day as needed for anxiety. active Not Available Not Available No t [...] Not Available Not Available Not Elvis Pisano [facility] spacer USE DIRECTED active Not Available Not Available No t Available mirabegron ER 50 mg tablet,exte nded release 24 hr Take by mouth daily. active Not Available Not Available No t Available Yuvafem 10 mcg vaginal tablet INSERT ONE TAB VAGINALLY EVERY WEDNESDAY AND WEDNESDAY active Not Available Not Available No t Available Flowflex COVID-19 Antigen Home Test kit USE DIRECTED 02/04 completed Not Available Not Available Not Available Vitals Date Recorded Body height Body weight Body mass index (BMI) Provider Name and Address Organization Details Last Updated DateTime 06/17/2023 160 cm 01588 g 27.46 kg/m2 Not Available [facility] 01/22/2025 23:35:52 Date Recorded Body height Body mass index (BMI) Body weight Provider Name and Address Organization Details Last Updated DateTime 07/16/2022 160.02 cm 28.2 kg/m2 [address].[address] [place] [facility] 07/16/2022 10:29:13 Date Recorded Body height Body mass index (BMI) Body weight Provider Name and Address Organization Details Last Updated DateTime 09/08/2022 160.02 cm 28.2 kg/m2 90885.19 g Aurelianoahleroymark Clarke [place] [facility] 09/08/2022 10:29:08 Date Recorded Heart rate Respiratory rate Oxygen saturation Body temperature Systolic And Diastolic Provider Name and Address Organization Details Last Updated DateTime 4 63 /min 18 /min 98 % 97.592 [degF] 130/62 mm[Hg] Not Available [facility] 23:35:52 Date Recorded Body height Provider Name an d Address Organization Details Last Updated DateTime 02/04/2023 [address] [place] [facility] 02/04/2023 14:04:30 Social History None recorded. Functional Status Question Answer Note LastModified by Organizat ion Details LastModified Time Do you use any illicit or recreational drugs? No [email or web address] Information not available 07/16/2022 What is your level of alcohol consumption? Occasional [email or web address] Information not available 07/16/2022 Mental Status None recorded. Family History Relationship Description Onset Age of this Age Resolved Age Notes LastModified by Organization Details LastModified Time Mother Diabetes mellitus [email or web address] Not available 2022 10:30:22 Father Diabetes mellitus [email or web address] Not available 2022 10:30:25 Medical History Condition Response COPD Y Gynecological HistoryNo gynecological history recorded. Obstetrics History GPAL:G 0 P 0 0 0 0 Past Encounters Encounter ID Performer Location Encounter Start Date Encounter Closed Date Diagnosis/Indication Diagnosis SNOMED-CT Code Diagnosis ICD10 Code Diagnosis IMO Codes Diagnosis Note [id number] Sharad Landaverde MD [place] [address] 07/16/2022 10:19:43 07/16/2022 11:19:22 Arthritis of acromioclavicular joint 999164787 M13.819 [id number] Sharad Landaverde MD [place] [address] 09/08/2022 10:20:46 09/08/2022 10:39:27 Arthritis of acromioclavicular joint 077011207 M13.819 [id number] Sharad Landaverde MD [place] [address] 02/04/2023 13:52:18 02/04/2023 14:33:25 Tendinitis of right shoulder 2319048292 558433 M75.91 Health Concerns Section Related Observation LastModified by Organization Detai ls LastModified Time None Recorded Concern Status LastModified by Organization Details LastModified Time None Recorded Advance Directives Directive None Recorded Payers Insurance Date Sequence Insurance Name Policy Number Policy Robertson Covered Member ID Robertson Member ID Guarantor Name 07/27/2023 1 [employer] (MEDICARE REPLACEMENT/ ADVANTAGE - PPO) [id number] Flory Trevor Dean [id number] Flory Dean Notes Date Note Type Note Provider Name and Address Organization Details Recorded Time 07/16/2022 text/html ROS as noted in the HPI Flory returns for follow-up of her right shoulder. Her MRI scan did show inflammation of the rotator cuff and AC arthritis but no rotator cuff tear Sharad Landaverde MD [address], [place], [address], [facility] - [facility] [place] 07/16/2022 11:47:05 09/08/2022 text/html flory returns for follow-up of her right shoulder the anterior injection really helped she reports that her pain has almost completely gone away and she has been playing pickle ball without discomfort Sharad Landaverde MD [address], [place], [address], [facility] [place] 09/08/2022 10:40:40 02/04/2023 text/html flory returns for follow-up of her right shoulder. I saw her last back in August and she had some tendinitis and ac arthritis and we did an injection and she did some therapy and she actually felt a lot better. Recently her pain is come back she complains of superior and lateral pain Sharad Landaverde MD [address], [place], [address], [facility] 02/04/2023 14:25:36 OBGyn Episode No OBEpisode recorded.
--- OUTSIDE RECORDS SUMMARY | 2025-04-03 11:52 | XMS_ITS | Clinical Summary ---
Author Organization [facility] Address [address] [place] [address] Care Team Providers Care Instructor Private Name Role Phone Jarred Loaiza MD Primary Care Provider [phone] Allergies Active Allergy Reactions Criticality Noted Date [...] Advance Directives For more information, please contact: [phone] Latest Code Status on File Code Status Date Activated Date Inactivated Comments Full Code 09/23/2023 8:19 AM 09/23/2023 3:16 PM This code status was ascertained in the following way: discussion with patient. Care Teams Instructor Private Relationship Specialty Start Date End Date Jarred Loaiza MD [address] [facility] [address] [place] [address] PCP - General Food Service Director 03/23/22
--- OUTSIDE RECORDS SUMMARY | 2025-04-03 11:52 | XMS_ITS | Clinical Summary ---
Author Organization [facility] Address [address] [place] [address] Care Team Providers Care Sales Department Clerk Name Role Phone Jarred Loaiza MD Primary Care Provider [phone] Allergies Active Allergy Reactions Criticality Noted Date [...] 3 Active cholecalciferol (CHOLECALCIFERO L) 1.25 MG (90798 UT) capsule TAKE 2 PUFFS BY MOUTH [...] 10/01/2021, 03/02/2021, Additional history exists RSV Vaccine 50 years and older and Patients (1 - 1-dose 75+ series) 2030 Hepatitis B Vaccines Aged Out No long er eligible based on patient's age to complete this topic Insurance [facility] MEDICARE [facility] MEDICARE [facility] MEDICARE Care Teams Sales Department Clerk Relationship Specialty Start Date End Date Jarred Loaiza MD [address] [place] [address] [address] [place] [address] PCP - General Internal Medicine 06/03/22
--- OUTSIDE RECORDS SUMMARY | 2025-04-03 11:52 | XMS_ITS | Clinical Summary ---
Author Organization [facility] Address [address] [place] [address] Phone Care Team Providers Care Note Taker Name Role Phone Jarred Pan MD Primary Care Provider [phone] Allergies Active Allergy Reactions Criticality Noted Date Comments Bupivacaine-Epinephrin e Palpitations 06/16/2022 Other reaction(s): TACHYCARDIA Pentobarbital Other,Unknown 06/16/2022 Other Reaction(s): difficulty waking Other reaction(s): difficulty waking up Procaine Palpitations 06/16/2022 Other reaction(s): tachycardia Sheep/Ovine/Wise Containing Products Nausea And Vomiting 06/16/2022 Other reaction(s): vomiting Sulfa (Sulfonamide Antibiotics) Hives 05/16/2021 Sulfadiazine Hives 04/02/2025 Medications No known medications Encounters Date Type Department Care Team Description 04/02/2025 9:30 AM EST Office Visit Pulmonology [facility] [address] [place] [address] Jesika Carnes MD Chronic obstructive pulmonary disease with emphysema, unspecified emphysema type (CMS/HCC V24, CMS/HCC V28) (Primary Dx); Pulmonary nodule; Gastroesophageal reflux disease without esophagitis from Last 3 Months Surgical History Surgery Date Site/Laterality Comments HIP SURGERY PROCEDURE:HIP SURGERY COLONOSCOPY PROCEDURE:COLONOSCOPY UPPER GASTROINTESTINAL ENDOSCOPY PROCEDURE:UPPER GASTROINTESTINAL ENDOSCOPY URETHRAL SLING PROCEDURE:URETHRAL SLING COLONOSCOPY 09/23/2023 N/A PROCEDURE:COLONOSCOPY;COMMENT :Procedure: COLONOSCOPY; Surgeon: Loc Roa MD; Location: [facility]; Service: Gastroenterology; Laterality: N/A; Medical History Medical History Date Comments COPD (chronic obstructive pu lmonary disease) ([facility] V24, [facility] V28) DX:COPD (chronic o bstructive pulmonary disease) ([facility]) Asthma DX:Asthma Overactive bladder DX:Overactive [...] Mass Index 27.63 04/02/2025 9:30 AM EST Plan of Treatment Upcoming Encounters Date Type Department Care Team (Late st Contact Info) Description 05/17/2025 1:15 PM EST Clinical Support Pulmonology - [address] [phone] 05/17/2025 2:00 PM EST Office Visit Pulmonology [address] [phone] Jesika Carnes MD [address] [place] [phone] Health Maintenance Due Date Last Done Comments Breast Cancer Screening 1955 DTaP,Tdap,and Td Vaccines (1 - Tdap) 1974 Pneumococcal Vaccine: 50+ Ye ars (1 of 2 - PCV) 1974 RSV Immunization Adult Patie nts (1 - Risk 50-74 years 1-dose series) 2005 Zoster Vaccines (1 of 2) 2005 Falls Risk Assessment 04/11/2022 Hepatitis C Screening 04/11/2022 Lung Cancer Screening (Low D ose CT) 04/11/2022 Medicare Annual Wellness Visit 04/11/2022 Osteoporosis Screening (Bone Density Screening) 04/11/2022 Social Influencers of Health Screening 04/11/2022 Depression Screening 05/03/2024 COVID-19 Vaccine (1 - 2024-2 6 season) 2025 Influenza Vaccine (#1) 2025 Colorectal Cancer Screening: Colonoscopy 09/22/2033 09/23/2023 HIB [...] topic Insurance [employer]AGE Care Teams Note Taker Relationship Specialty Start Date End Date Jarred Pan MD [address] [place] [address] PCP - General Operating Room Manager 05/16/21
--- OUTSIDE RECORDS SUMMARY | 2025-04-03 11:52 | XMS_ITS | Encounter Summary ---
Author Organization [facility] Address [address] [place] [address] Care Team Providers Care Ski Technician Name Role Phone Jarred Loaiza MD Primary Care Provider [phone] Encounter Details Date Type Department Care Team (Late st Contact Info) Description 10/15/2022 Scanned Document [facility], [address] [place] [phone] Jarred Loaiza MD [address] [place] [address] Social History Tobacco Use Types Packs/Day Years [...] on filedocumented in this encounter Care Teams Ski Technician Relationship Specialty Start Date End Date Jarred Loaiza MD [address] [place] [address] PCP - General Internal Medicine 06/03/22 documented as of this encounter
--- NOTE | 2025-04-03 13:37 | A.OFFPSYCH_ITS ---
Intake Intake Visit Reasons: depression HPI- Psychiatric Chief Complaint: depression HPI Narrative: The patient presented to the clinic for management of anxiety and attention- deficit disorder (ADD) symptoms. HPI The patient reported experiencing anxiety, particularly manifesting as waking up in the middle of the night with a pounding heart. The patient occasionally used Klonopin to manage panic episodes but expressed concern about potential overuse. The patient described employing various techniques to manage anxiety, such as walking, swimming, and mental exercises. However, the patient mentioned recent e xacerbation of anxiety related to a breast cancer scare, which reminded the patient of two friends who had cancer. The patient identified difficulty with meditation and relaxation breathing, citing agitation or falling asleep during attempts. The patient expressed a desire to explore treatment options for ADD, noting a tendency to start multiple projects without completing them promptly, which sometimes led to increased anxiety. Patient also describes some increase in anxiety irritability anger at times directed at her who has not been taking care of himself. PAIN The patient did not report any specific pain level during the encounter. Past Psychiatric History: Past history of severe depression and psychiatric hospitalization not for many years Mental Status Exam Mental Status Exam Narrative: Narrative: Mental Status Exam Narrative: Appearance: Casually dressed Behavior: Cooperative appropriate psychomotor: Within normal limits Speech: Normal volume and prosody Thought proccess logical and goal-directed Thought content: Future oriented no self-harming thoughts some anxiety regarding cognition st memory particularly regarding her Mood: anxious dysphoric Affect: Appropriate to mood full affect SI:denies HI:denies VH/AH:none Delusions: None Insight/judgment: Good insight and judgment Memory/cog: Intact no obvious deficit word finding Assessment and Plan Assessment & Plan (1) Major depressive disorder in partial remission: Status: Acute Code(s): F32.4 - Major depressive disorder, single episode, in partial remission (2) History of OCD (obsessive compulsive disorder): Status: Acute Code(s): Z86.59 - Personal history of other mental and behavioral disorders (3) Fibromyalgia: Status: Acute Code(s): M79.7 - Fibromyalgia Plan ASSESSMENT The patient presented with symptoms suggestive of generalized anxiety disorder and ADD. Differential diagnosis includes generalized anxiety disorder, panic disorder, and ADD. The patient expressed interest in non-stimulant treatment options for ADD and anxiety. PLAN 1. Initiate Buspar (buspirone) with a starting dose of 15 mg, taking half a pill twice a day, with plans to increase to a full pill twice a day as tolerated. 2. Discuss the potential use of guanfacine (Tenex) or Strattera for managing ADD and anxiety symptoms. The patient was encouraged to research these medications for further discussion. 3. Recommend exploration of relaxation strategies, including the Calm gian, Headspace gian, and [place] headband for meditation and relaxation practice. 4. Schedule a follow-up appointment in six weeks to assess the patient's response to Buspar and discuss potential ADD treatment options. 5. Encourage the patient to reach out via portal or phone if there are any concerns or if the patient wishes to adjust the treatment approach before the next appointment. Monitor for relapse of movement disorder Medications: New buspirone 7.5 - 15 mg (0.5 - 1 x 15 mg) PO BID 60 tabs 1RF 30 days Counseling and coordination of Care Details: I spent [] minutes reviewing the record, seeing the patient and documenting in the medical record. Counseling provided to the patient/caregiver as outlined below. Addressed patient/caregiver concerns regarding current medication regime including effective adherence. Addressed patient/caregiver concerns regarding diagnosis and prognosis including accuracy of diagnosis, prognosis over time, impact of diagnosis. Addressed patient/caregiver concerns regarding impact of recent stressors. 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
== END 2025-04-03 10:26 | disposition home or self-care (01) ==
LOC: HO.HOP 10:23
PROVIDERS: PCP Internal Medicine; Visit Provider Psychiatry & Neurology Psychiatry
DX: F32.4 Major depressive disorder, single episode, in partial remission (principal); Z86.59 Personal history of other mental and behavioral disorders; M79.7 Fibromyalgia
CPT/HCPCS: 99214

== ENCOUNTER → 2025-04-03 10:23 | Outpatient (BNVA) | payer MEDICARE, SELFPAY | PROVIDERS: PCP Internal Medicine; Visit Provider Psychiatry & Neurology Psychiatry | DX: F32.4 Major depressive disorder, single episode, in partial remission (principal); Z86.59 Personal history of other mental and behavioral disorders; M79.7 Fibromyalgia | CPT/HCPCS: 99212 ==